=== PATIENT | female | born 1945 | race African-American/Black ===

== ENCOUNTER 2016-12-21 11:47 | Inpatient (IN) ==
[2016-12-21] MEDS ORDERED: HYDROmorphone 2 MG/1 ML VIAL IV STA (12:11)
[2016-12-21] MEDS ORDERED: ONDANSETRON 4 MG/2 ML VIAL IV STA ×2 (12:11→13:51)
[2016-12-21] MEDS ORDERED: PANTOPRAZOLE 40 MG VIAL IV STA (12:11)
--- NOTE | 2016-12-21 12:29 | XRay Report ---
XR chest 1V portable Indication: Abdominal pain. Chest one view: Heart size and mediastinal contour are normal. Lungs are hypoinflated, with senile interstitial scarring centrally. They are otherwise generally clear, except for minimal bibasilar atelectasis. Pleural spaces are clear. Bones are intact. Impression: Mild pulmonary hypoinflation with atelectasis. Senile lung changes centrally. PROCEDURE INTERPRETED AT [facility] DEPARTMENT OF RADIOLOGY Final Report Signed by: Bishop Bryant M.D.
--- NOTE | 2016-12-21 12:43 | EKG Report ---
Stationary ECG Study [facility] ER Test Date: 12/21/2016 12:42:02 PM Pat Name: MOSHE EDWARDS Department: Room: 111 Gender: F Pipe Fitter Helper: : 1945 Requested by: Christopher Seaman Order Number: [id number] Ema MD: PETER EISENBERG Intervals [place] Rate: 125 P: 95 NE: 104 QRS: 59 QRSD: 86 T: 13 QT: 396 QTc: 470 Interpretive Statements SINUS TACHYCARDIA WITH SHORT NE INTERVAL ABNORMAL RHYTHM ECG Electronically Signed On 12-22-16 12:30:41 [employer] by PETER EISENBERG [email or web address]
[2016-12-21 12:46] LABS: Basophils # 0.1 10*3/uL (0.0-0.2); Basophils % 0.2 % (0.0-0.8); Hematocrit 39.4 VOL% (35.7-47.0); Hemoglobin 13.6 GM/DL (12.0-16.0); Immature Granulocytes % 1.4 %; Lymphocytes % 3.6 % (21.3-54.2); Mean Corpuscular HGB Conc 34.5 GM/DL (32-36); Mean Corpuscular Hemoglobin 33 PG (27-34); Mean Corpuscular Volume 96.6 FL (87-102); Mean Platelet Volume 11.7 FL (9.6-12.0); Monocytes # 1.2 10*3/uL (0.11-0.8); Monocytes % 4.1 % (1.7-12.7); Neutrophils # 25.6 10*3/uL (1.4-7.4); Neutrophils % 90.7 % (38.7-73.9); Platelet Count 220 10*3/uL (130-400); Red Blood Count 4.08 10*6/uL (3.8-5.5); Red Cell Distribution Width 12.4 % (9.3-17.3); White Blood Count 28.2 10*3/uL (4.5-13.71)
[2016-12-21 12:59] LABS: Albumin 3.1 G/DL (3.4-5.0); Bilirubin,Total 0.7 MG/DL (0.2-1.0); Calcium 9.1 MG/DL (8.5-10.1); Lactic Acid 8.2 MMOL/L (0.4-2.0); Osmolality,Calculated 268.5 MOS/KG (273-304); Total Protein 7.4 G/DL (6.4-8.3)
[2016-12-21 13:03] LABS: Potassium 2.1 MMOL/L (3.5-5.1)
[2016-12-21 13:05] LABS: Band Neutrophils 7 % (0-10); Lymphocytes 1 % (20-55); Metamyelocytes 1 %; Segmented Neutrophils 89 % (50-85); Total Cells Counted 100
[2016-12-21 13:06] LABS: Hypochromasia 1+; Platelet Estimate Adequate
[2016-12-21] MEDS ORDERED: PANTOPRAZOLE 40 MG VIAL IV ONE (13:19)
[2016-12-21] MEDS ORDERED: ONDANSETRON 4 MG/2 ML VIAL ONE ×2 (13:19→16:26)
[2016-12-21] MEDS ORDERED: HYDROmorphone 2 MG/1 ML VIAL ONE (13:20)
[2016-12-21 13:49] LABS: Apearance,Urine Slightly Hazy (Clear); Bacteria,Urine Occasional /HPF (Few); Bilirubin,Urine Negative (Negative); Blood, Urine Small mg/dL (Negative); Glucose,Urine (UA) Negative (Negative); Hyaline Casts,Urine 1 /LPF (0-3); Ketones,Urine 5 mg/dL (Negative); Mucus,Urine Occasional /LPF (Occasional); Nitrite,Urine Negative (Negative); Protein,Urine Negative; RBC,Urine 6 /HPF (0-4); Squamous Epithelial Cell,Urine Occasional /HPF (0-10); Urine Color Yellow (Yellow); Urine Specific Gravity 1.014 (1.001-1.035); Urine Urobilinogen < 2.0 EU/DL (0.2-1.0); WBC,Urine 4 /HPF (0-6)
--- NOTE | 2016-12-21 15:13 | CT Report ---
CT abdomen pelvis w con Indication: Abdominal pain. CT ABDOMEN AND PELVIS WITH CONTRAST DLP: 411 mGy*cm Comparison: 12/16/12 Technique: Axial CT images of the abdomen and pelvis were obtained with IV contrast; Omnipaque 350, 100 cc. Oral contrast was not administered. Abdomen: Distal esophagus is thickened concentrically similar but worse than on the prior exam 4 years ago. Tiny right pleural effusion is present. Bibasilar atelectasis or scarring. Mild cardiomegaly. Mitral valve calcifications noted. Liver, gallbladder, spleen, pancreas, adrenal glands are within normal limits. Cortical scarring of both kidneys present. No obstructive uropathy. Fluid-filled small bowel is present centrally without dilatation. Stomach is modestly distended with fluid and air. By CT, colon appears unremarkable overall. No free fluid, free air or lymphadenopathy. Calcified atheromatous disease the aorta is present but mild. Pelvis: Urinary bladder is distended. Appendix is normal without inflammation. Rectosigmoid colon is within normal limits. Uterus is absent. Left FLORINDA, osteopenia and degenerative changes lumbar spine noted. Impression: 1. Fluid-filled central small bowel noted, without obstruction. Mild enteritis suspect. 2. Concentric thickening of the distal esophagus. Although present and 2013, it is more pronounced now. Is there history of connective tissue disorder or chronic reflux? EGD warranted. 3. Distention urinary bladder. 4. Negative appendix. Status post hysterectomy. Cortical scarring the kidneys. PROCEDURE INTERPRETED AT [facility] DEPARTMENT OF RADIOLOGY Final Report Signed by: Bishop Bryant M.D.
--- NOTE | 2016-12-21 15:43 | Emergency Department Note ---
Gary Beard Jamie, am scribing for, and in the presence of, Umesh Bennett MD 12:14. Donald Beard Doug C, MD, personally performed the services described in this documentation, ascribed by Enrrique Vega in my presence, and it is both accurate and complete 510 . Arrival - Arrival Chief Complaint: Abdominal / Flank Pain Stated Complaint: ABD Pain/Coffee ground emesis ED Nursing Triage Note: Onset of severe abd pain and dark emesis at 0300 this morning. +Hand cramps Mode of Arrival: Stretcher Limitations: No Limitations Source: Patient, RN Notes Reviewed Time Seen by Provider: 12/21/16 12:11 - History of Present Illness HPI Narrative: Patient 71 year old black female presents emergency room complaining of abdominal pain with nausea and vomiting that began at 3 AM. Patient had some dark emesis this morning but denies any prior history of peptic ulcer disease and denies any dyspepsia. She is not using any anti-inflammatory drugs and has never had any episode like this in the past. Patient states she is diffusely tender in her abdomen. She has not seen any blood in her stools and denies melena. She is not having any fever or chills. No one else at home has been ill. Onset (ago): hour(s) (9) Consistency: constant Severity: moderate Allergies/Adverse Reactions: Allergies Allergy/AdvReac Type Severity Reaction Status Date / Time meperidine [From Demerol] AdvReac Nausea Verified 07/28/16 21:08 Home Medications: Home Medications Medication Instructions Recorded Confirmed Type cloNIDine HCl [Clonidine HCl] 0.2 mg PO BID 07/29/16 12/21/16 History Cilostazol 100 mg PO BID 12/21/16 12/21/16 History Gabapentin Cap/Tab [Neurontin 100 mg PO BID 12/21/16 12/21/16 History Cap/Tab] HYDROcodone/ACETAMIN 7.5-325 2 tablet PO Q6H PRN 12/21/16 12/21/16 History [[place] 7.5-325] Metoprolol Tartrate 50 mg PO BID 12/21/16 12/21/16 History Potassium Chloride Cap/Tab [K Dur] 20 meq PO DAILY 12/21/16 12/21/16 History Review of System - Review of System 12 point system: reviewed and no additional remarkable complaints except as stated - Review of System Constitutional: Absent: chills, diaphoresis, fever, weakness Eyes: Absent: vision change Respiratory: Absent: cough Cardiovascular: Absent: chest pain Gastrointestinal: Present: abdominal pain, nausea, vomiting (Dark emesis). Absent: diarrhea, constipation Musculoskeletal: Absent: joint swelling Skin: Absent: rash, change in color Neurological: Absent: headache, weakness, numbness, confusion Hematological/Lymphatic: Absent: easy bleeding, easy bruising Medical,Surgical,& Family Hx - Medical History Cardio: History of: Hypertension Gastrointestinal: History of: GERD Reproductive: History of: Ectopic (two) - Surgical History HEENT Surgeries: Surgical HX of: Eye Surgery (cateract) Abdominal Surgeries: Surgical HX of: Cholecystectomy Reproductive Surgeries: Surgical HX of;: Hysterectomy - Family History Family History: Denies;: Family Anesthesia Reaction, Family Cancer, Family Diabetes, Family Heart Disease, Family Hypertension, Family Psychiatric Problems, Family Stroke - Social History Smoking Status: Unknown if ever smoked Frequency of Alcohol Use: Unknown Type of Drug Use: Unknown Exam Vital Signs: Vital Signs Temperature 97.5 F L 12/21/16 11:50 Pulse Rate 131 H 12/21/16 11:50 Respiratory Rate 24 12/21/16 11:50 Blood Pressure 138/92 12/21/16 11:50 O2 Sat by Pulse Oximetry 100 12/21/16 11:48 - General General appearance: alert, in no apparent distress - Head Head exam: Present: atraumatic, normocephalic, normal inspection - Eye Eye exam: Present: normal appearance, PERRL, EOMI - ENT ENT exam: Present: normal exam, mucous membranes moist, TM's normal bilaterally - Neck Neck exam: Present: normal inspection, full ROM - Chest Chest inspection: Present: normal inspection, symmetric chest wall rise - Respiratory Respiratory exam: Present: normal lung sounds bilaterally - Cardiovascular Cardiovascular exam: Present: regular rate, tachycardia, normal heart sounds - Abdominal Exam Abdominal exam: Present: soft, tenderness (Diffusely tender), normal bowel sounds. Absent: guarding, rebound - Extremities Exam Extremities exam: Present: normal inspection, full ROM - Neurological Exam Neurological exam: Present: alert, oriented X3, CN II-XII intact, reflexes normal. Absent: motor sensory deficit - Psychiatric Psychiatric exam: Present: normal affect, normal mood - Skin Skin exam: Present: warm, dry, intact, normal color Course Course Narrative: Patient's clinical presentation, laboratory and radiographic findings were discussed with Dr. Suresh De Jesus and Dr. Mckeon. Dr. Magana will admit the patient to his services and Dr. Suresh De Jesus will see in consultation Results - Labs CBC & BMP: 12/21/16 12:19 12/21/16 12:19 Lab Results: I have reviewed the patients labs Labs: Laboratory Tests 12/21/16 12/21/16 12/21/16 12:19 12:19 13:33 WBC 28.2 H Neut % (Auto) 90.7 H Lymph % (Auto) 3.6 L Neut # (Auto) 25.6 H Lymph # (Auto) 1.0 L [place] # (Auto) 1.2 H Segmented Neutrophils 89 H Lymphocytes 1 L Sodium 132 L Potassium 2.1 L* Chloride 77 L Carbon Dioxide 35 H Anion Gap 22.1 H BUN 25 H Creatinine 1.30 H Glucose 115 H Calculated Osmolality 268.5 L Lactic Acid 8.2 H ALT 12 L Albumin 3.1 L Globulin 4.3 H Albumin/Globulin Ratio 0.7 L Lipase 55.0 L Urine Urobilinogen < 2.0 H Urine Leukocytes Small H - Diagnostic Findings Procedure: Chest x-ray: report reviewed by me (Mild pulmonary hypoinflation with atelectasis. Senile lung changes centrally. ), CT Abdomen and Pelvis: report reviewed by me (Changes consistent with enteritis and thickening of the distal esophagus) Disposition Clinical Impression: Enteritis, Upper GI hemorrhage Case discussed with: patient, patient's family Disposition: Still a Patient Condition: Guarded Time of Disposition: 15:43
[2016-12-21] MEDS ORDERED: LACTATED RINGERS 2,000 ML IV ONE (16:07)
[2016-12-21] MEDS ORDERED: PIPERACILLIN/TAZOBACTAM 3,375 MG in SODIUM CHLORIDE 0.9% 100 ML IV STA (16:07)
--- NOTE | 2016-12-21 16:07 | General Surgery Consult Note ---
Assessment and Plan (1) Abdominal pain Status: Acute Assessment and plan: This patient had abdominal pain with nausea and vomiting and coffee grounds emesis and she does have some thickening of her distal esophagus and some small bowel fluid-filled loops with no evidence of obstruction. Her vasculature on her CT scan appears relatively intact but there is some calcification at the ostia of the celiac artery and the SMA. However, there does not appear to be any arterial thrombosis or embolism and there doesn't appear to be any venous occlusive disease either. Her anatomy appears intact as far as her C-loop of her duodenum and she does not appear to have any evidence of malrotation or midgut volvulus. She does have on her axial CT scan an area just distal to her calcification which looks like it could be a small dissection flap that this is not seen on the coronal images so it could just be artifact as well in either way it was not flow-limiting and there is good filling of the artery distally. The delayed images also don't show any problems with this. I do not see any problems that would require surgical intervention although her lab work is very concerning to me. I recommend admission with IV fluid resuscitation and serial lactates to make sure she is resuscitating appropriately. She should have a GI consultation to evaluate for coffee grounds emesis and we should trend her hemoglobin and monitor her closely in the ICU. Her electrolytes will also have to be aggressively addressed and repleted during her resuscitation. I also would recommend IV antibiotics to cover GI giacomo. Current Visit: Yes History of Present Illness Chief complaint: abdominal pain with coffee grounds emesis History of present illness: Ms. Asehr is a 71 year old female with a history of hypertension who presents to the hospital with acute onset of periumbilical abdominal pain that woke her from sleep at 3 a.m. She had several episodes of what she describes as coffee grounds emesis afterwards and presented to the ER for evaluation. On initial presentation in the ER she was tachycardic with a heart rate near 150 but her blood pressure was stable and normal. She was a little bit tachypneic as well. She was treated with some IV fluids and pain medication and she had a good response to this. She was evaluated with lab work after her resuscitation which demonstrated a white blood cell count 28,000. She had a potassium of 2.1 and had hypochloremic hypokalemic metabolic acidosis with a lactic acid of 8.2. Her urinalysis revealed possible urine culture and the culture was sent off. She was evaluated with a CT scan which showed some fluid-filled loops of small bowel but no transition point or evidence of obstruction. There was no evidence of vascular compromise to the intestines but there was fairly significant calcification at the ostia of the celiac and the SMA. There was no venous thrombosis seen. The patient did not have evidence of a bowel obstruction. By the time I saw the patient, her pain was much better and she actually had a nontender abdomen and her heart rate was in the low 100s. She is almost asymptomatic at the time of my visit with her and is resting comfortably in bed. Home Medications Medication Instructions Recorded Confirmed Type cloNIDine HCl [Clonidine HCl] 0.2 mg PO BID 07/29/16 12/21/16 History Cilostazol 100 mg PO BID 12/21/16 12/21/16 History Gabapentin Cap/Tab [Neurontin 100 mg PO BID 12/21/16 12/21/16 History Cap/Tab] HYDROcodone/ACETAMIN 7.5-325 2 tablet PO Q6H PRN 12/21/16 12/21/16 History [[place] 7.5-325] Metoprolol Tartrate 50 mg PO BID 12/21/16 12/21/16 History Potassium Chloride Cap/Tab [K Dur] 20 meq PO DAILY 12/21/16 12/21/16 History Allergies Allergy/AdvReac Type Severity Reaction Status Date / Time meperidine [From Demerol] AdvReac Nausea Verified 07/28/16 21:08 Medical,Surgical,& Family Hx - Medical History Cardio: History of: Hypertension Gastrointestinal: History of: GERD Reproductive: History of: Ectopic (two) - Surgical History HEENT Surgeries: Surgical HX of: Eye Surgery (cateract) Abdominal Surgeries: Surgical HX of: Cholecystectomy Reproductive Surgeries: Surgical HX of;: Hysterectomy - Family History Family History: Denies;: Family Anesthesia Reaction, Family Cancer, Family Diabetes, Family Heart Disease, Family Hypertension, Family Psychiatric Problems, Family Stroke - Social History Smoking Status: Unknown if ever smoked Frequency of Alcohol Use: Unknown Type of Drug Use: Unknown - Constitutional Constitutional: Present: as per HPI - EENT Nose, mouth and throat: Present: as per HPI - Cardiovascular Cardiovascular: Present: as per HPI - Respiratory Respiratory: Present: as per HPI - Gastrointestinal Gastrointestinal: Present: as per HPI - Genitourinary Genitourinary: Present: as per HPI - Musculoskeletal Musculoskeletal: Present: as per HPI - Neurological Neurological: Present: as per HPI - Endocrine Endocrine: Present: as per HPI Hematologic/Lymphatic: Present: as per HPI Exam - Constitutional Vitals: Period Temp Pulse Resp BP Sys/Joya Pulse Ox Last 24 Hr 97.5 F-97.5 F 131-147 24-28 138-138/92-92 100 General appearance: normal weight, no acute distress - Head Head exam: Present: normal inspection, normocephalic - Eye Eye exam: Present: EOMI Pupils: Present: JIL - ENT ENT exam: Present: normal exam Mouth exam: Present: normal external inspection, normal voice - Neck Neck exam: Present: normal inspection, trachea midline - Respiratory Respiratory exam: Present: clear to auscultation bilaterally. Absent: accessory muscle use, chest wall tenderness - Cardiovascular Cardiovascular exam: Present: tachycardia. Absent: irregular rhythm, systolic murmur - GI/Abdominal GI/Abdominal exam: Present: hypoactive bowel sounds, soft. Absent: ascites, distended, firm, guarding, hernia, tenderness, rebound - Extremities Exam Extremities exam: Present: normal inspection, normal capillary refill - Back Exam Back exam: Present: normal inspection - Neurological Exam Neurological exam: Present: alert, oriented X3 Speech: Present: normal - Skin Skin exam: Present: normal color, warm Results - Labs CBC & BMP: 12/21/16 12:19 12/21/16 12:19 - Diagnostic Findings Procedure: CT Abdomen and Pelvis: image reviewed by me, report reviewed by me
[2016-12-21 16:24] LABS: Troponin I Only 0.053 NG/ML (0.00-0.045)
[2016-12-21] MEDS ORDERED: PIPERACILLIN/TAZOBACTAM 3,375 MG VIAL IV ONE (16:26)
[2016-12-21] MEDS ORDERED: SODIUM CHLOR 0.9% KCL 40 MEQ 40 MEQ/1,000 ML BAG IV ONE (16:26)
--- NOTE | 2016-12-21 16:51 | Hospitalist History & Physical ---
Assessment and Plan (1) Intractable nausea and vomiting Status: Acute Assessment and plan: with epigastric pain: CT showed no evidence of obstruction. Plan IVF IV antibiotics Blood cultures pain meds and antiemetics GI consult amylase, lipase levels H.pylori PPIs lactic level in am Current Visit: Yes (2) Coffee ground emesis Status: Acute Assessment and plan: continue with IVF, PPIs, GI consult Current Visit: Yes (3) Hypertension Status: Chronic Assessment and plan: will control Current Visit: No Qualifiers: Hypertension type: essential hypertension Qualified Code(s): I10 - Essential (primary) hypertension (4) Hypokalemia Status: Acute Assessment and plan: will replete and repeat levels in am, get Mg level Current Visit: Yes (5) Elevated troponin Status: Acute Assessment and plan: this could be due to sepsis to r/o ACS -repeat levels -consider Echo in am Current Visit: Yes (6) Sepsis Status: Acute Assessment and plan: possible sepsis with the tachycardia,elevated WBC,lactic acid -panculture, continue with IV Zosyn Current Visit: Yes History of Present Illness Chief complaint: nausea and vomiting History of present illness: Ms. Asher is a 71 year old female with a history of HTN, GERD who was well until around 3pm today when she developed some nausea, vomiting, coffee grounds emesis. Symptoms progressively worsened, she was unable to keep anything down and was brought to the ER for evaluation. She states an associated epigastric pain but denies fever, chills or rigor. She also denies constipation or diarrhoea. She denies ingestion of any seafood and has no previous history of ulcer. Upon arrival to the ER,she was tachycardic with a heart rate near 150 but her blood pressure was stable,white blood cell count was 28,000. She had a potassium of 2.1 and had hypochloremic hypokalemic metabolic acidosis with a lactic acid of 8.2.CT scan which showed some fluid-filled loops of small bowel but no transition point or evidence of obstruction. There was no evidence of vascular compromise to the intestines but there was fairly significant calcification at the ostia of the celiac and the SMA. There was no venous thrombosis seen. The patient did not have evidence of a bowel obstruction. She was started on IVF, pain meds,IV Zosyn, surgery was consulted and they did not see any problems that would require surgical intervention although her lab work was very concerning, they recommended fluid resuscitation and GI consult. She denies any melena stools,or bleeding from any orifices. Home Medications Medication Instructions Recorded Confirmed Type cloNIDine HCl [Clonidine HCl] 0.2 mg PO BID 07/29/16 12/21/16 History Cilostazol 100 mg PO BID 12/21/16 12/21/16 History Gabapentin Cap/Tab [Neurontin 100 mg PO BID 12/21/16 12/21/16 History Cap/Tab] HYDROcodone/ACETAMIN 7.5-325 2 tablet PO Q6H PRN 12/21/16 12/21/16 History [[place] 7.5-325] Metoprolol Tartrate 50 mg PO BID 12/21/16 12/21/16 History Potassium Chloride Cap/Tab [K Dur] 20 meq PO DAILY 12/21/16 12/21/16 History Allergies Allergy/AdvReac Type Severity Reaction Status Date / Time meperidine [From Demerol] AdvReac Nausea Verified 07/28/16 21:08 Medical,Surgical,& Family Hx - Medical History Cardio: History of: Hypertension Gastrointestinal: History of: GERD Reproductive: History of: Ectopic (two) - Surgical History HEENT Surgeries: Surgical HX of: Eye Surgery (cateract) Abdominal Surgeries: Surgical HX of: Cholecystectomy Reproductive Surgeries: Surgical HX of;: Hysterectomy - Family History Family History: Denies;: Family Anesthesia Reaction, Family Cancer, Family Diabetes, Family Heart Disease, Family Hypertension, Family Psychiatric Problems, Family Stroke - Social History Smoking Status: Unknown if ever smoked Frequency of Alcohol Use: Unknown Type of Drug Use: Unknown 12 point system: reviewed and no additional remarkable complaints except as stated Exam - Constitutional Vitals: Period Temp Pulse Resp BP Sys/Joya Pulse Ox Last 24 Hr 97.5 F-97.5 F 131-147 24-28 138-138/92-92 100 General appearance: no acute distress - Head Head exam: Present: normal inspection - Neck Neck exam: Present: normal inspection - Respiratory Respiratory exam: Present: clear to auscultation bilaterally - Cardiovascular Cardiovascular exam: Present: regular rate and rhythm - GI/Abdominal GI/Abdominal exam: Present: normal bowel sounds, tenderness (mild epigastric tenderness, no guarding) - Extremities Exam Extremities exam: Present: normal inspection - Neurological Exam Neurological exam: Present: alert, oriented X3 Results - Labs CBC & BMP: 01/29/17 12:19 12/21/16 12:19 Lab Results: I have reviewed the past 24 hour labs
[2016-12-21] MEDS: SODIUM CHLOR 0.9% KCL 40 MEQ 40 MEQ/1,000 ML BAG IV SCH (16:57)
[2016-12-21] MEDS ORDERED: MAGNESIUM SULF RIDER 2 GM in PREMIX 1 EACH IV ONE (18:13)
[2016-12-21] MEDS ORDERED: SODIUM CHLORIDE 0.45% 1,000 ML IV SCH (18:13)
[2016-12-21] MEDS: MORPHINE 2 MG/1 ML SYRINGE IV PRN (18:27)
[2016-12-21] MEDS: LABETALOL 20 MG/4 ML SYRINGE IV PRN (19:24)
[2016-12-21 19:31] LABS: Lactic Acid 2.6 MMOL/L (0.4-2.0)
[2016-12-21 19:34] LABS: Amylase 48 U/L (25-115)
[2016-12-21 19:40] LABS: Troponin I Only 0.101 NG/ML (0.00-0.045)
[2016-12-21 19:45] LABS: Risk Ratio 2.96; Thyroid Stimulating Hormone 0.209 uIU/ml (0.358-3.74); VLDL CHOLESTEROL 16.8 MG/DL
[2016-12-21] MEDS: POTASSIUM CHLORIDE RIDER 10 MEQ in PREMIX 1 EACH IV PRN ×3 (19:46→22:53)
[2016-12-21] MEDS: ONDANSETRON 4 MG/2 ML VIAL IV PRN (19:56)
[2016-12-21 19:59] LABS: Basophils % 0.1 % (0.0-0.8); Hematocrit 36.2 VOL% (35.7-47.0); Immature Granulocytes % 0.6 %; Immature Granulocytes Absolute 0.15 #; Lymphocytes # 1.2 10*3/uL (1.4-4.0); Mean Corpuscular HGB Conc 33.1 GM/DL (32-36); Mean Corpuscular Hemoglobin 33 PG (27-34); Mean Corpuscular Volume 100.6 FL (87-102); Mean Platelet Volume 11.7 FL (9.6-12.0); Monocytes # 1.4 10*3/uL (0.11-0.8); Monocytes % 6.1 % (1.7-12.7); Neutrophils # 20.6 10*3/uL (1.4-7.4); Neutrophils % 88.2 % (38.7-73.9); Platelet Count 156 10*3/uL (130-400); Red Cell Distribution Width 12.9 % (9.3-17.3); White Blood Count 23.4 10*3/uL (4.5-13.71)
[2016-12-21] MEDS: CILOSTAZOL 100 MG TABLET PO SCH (20:13)
[2016-12-21 20:17] LABS: Magnesium 1.6 MG/DL (1.8-2.4); Osmolality,Calculated 267.4 MOS/KG (273-304)
[2016-12-21 20:21] LABS: Potassium 2.5 MMOL/L (3.5-5.1)
[2016-12-21 20:23] LABS: Band Neutrophils 1 % (0-10); Lymphocytes 5 % (20-55); Segmented Neutrophils 88 % (50-85); Total Cells Counted 100
[2016-12-21 20:24] LABS: Platelet Estimate Normal
[2016-12-21] MEDS ORDERED: PROMETHAZINE 25 MG/1 ML VIAL IM PRN (21:54)
[2016-12-21] MEDS: METOPROLOL TARTRATE 50 MG TABLET PO SCH (22:19)
[2016-12-21] MEDS: GABAPENTIN 100 MG CAPSULE PO SCH (22:19)
[2016-12-22] MEDS: PIPERACILLIN/TAZOBACTAM 3,375 MG in SODIUM CHLORIDE 0.9% 100 ML IV SCH ×3 (00:56→15:47)
[2016-12-22] MEDS: SODIUM CHLOR 0.9% KCL 40 MEQ 40 MEQ/1,000 ML BAG IV SCH ×3 (00:56→15:47)
[2016-12-22] MEDS: LABETALOL 20 MG/4 ML SYRINGE IV PRN (01:07)
[2016-12-22] MEDS: POTASSIUM CHLORIDE RIDER 10 MEQ in PREMIX 1 EACH IV PRN ×5 (01:08→14:19)
[2016-12-22] MEDS: METOPROLOL TARTRATE 50 MG TABLET PO SCH ×2 (08:22→20:54)
[2016-12-22] MEDS: GABAPENTIN 100 MG CAPSULE PO SCH ×2 (08:22→20:54)
[2016-12-22] MEDS: PANTOPRAZOLE 40 MG VIAL IV SCH (08:22)
[2016-12-22] MEDS: CILOSTAZOL 100 MG TABLET PO SCH (08:22)
[2016-12-22] MEDS: POTASSIUM CHLORIDE 20 MEQ TABLET PO SCH (08:22)
[2016-12-22 08:40] LABS: Basophils % 0.2 % (0.0-0.8); Hematocrit 32.4 VOL% (35.7-47.0); Hemoglobin 10.8 GM/DL (12.0-16.0); Immature Granulocytes % 0.6 %; Immature Granulocytes Absolute 0.15 #; Lymphocytes % 8.5 % (21.3-54.2); Mean Corpuscular HGB Conc 33.3 GM/DL (32-36); Mean Corpuscular Hemoglobin 33 PG (27-34); Mean Corpuscular Volume 98.5 FL (87-102); Mean Platelet Volume 11.6 FL (9.6-12.0); Monocytes # 1.4 10*3/uL (0.11-0.8); Monocytes % 5.7 % (1.7-12.7); Neutrophils # 20.2 10*3/uL (1.4-7.4); Platelet Count 165 10*3/uL (130-400); Red Blood Count 3.29 10*6/uL (3.8-5.5); White Blood Count 23.8 10*3/uL (4.5-13.71)
[2016-12-22 09:00] LABS: Band Neutrophils 1 % (0-10); Hypochromasia 1+; Lymphocytes 8 % (20-55); Platelet Estimate Normal; Segmented Neutrophils 87 % (50-85); Total Cells Counted 100
--- NOTE | 2016-12-22 09:06 | Hospitalist Progress Note ---
Assessment and Plan (1) Intractable nausea and vomiting Status: Acute Assessment and plan: with epigastric pain: improved . CT showed no evidence of obstruction. Plan Continue IVF, IV antibiotics, PPIs Follow Blood cultures Continue pain meds and antiemetics Await GI consult amylase, lipase levels-unremarkable follow H.pylori, lactic level Current Visit: Yes (2) Coffee ground emesis Status: Acute Assessment and plan: continue with IVF, PPIs, Awaiting GI consult Current Visit: Yes (3) Hypertension Status: Chronic Assessment and plan: stable Current Visit: No Qualifiers: Qualified Code(s): I10 - Essential (primary) hypertension (4) Hypokalemia Status: Acute Assessment and plan: will continue to replete, follow levels in am, get Mg level Current Visit: Yes (5) Elevated troponin Status: Acute Assessment and plan: this could be due to sepsis to r/o ACS -repeat levels -follow Echo, await cardiology's consult Current Visit: Yes (6) Sepsis Status: Acute Assessment and plan: possible sepsis with the tachycardia,elevated WBC,lactic acid -follow cultures, continue with IV Zosyn Current Visit: Yes Hospitalist: Subjective Interval history: Patient seen this am, no episode of coffee ground emesis reported since admission. Awaiting GI consult, no new complaints. Exam - Constitutional Vitals: Period Temp Pulse Resp BP Sys/Joya Pulse Ox Last 24 Hr 97.6 F-98.8 F 72-95 14-23 126-182/63-98 92-100 General appearance: no acute distress - Respiratory Respiratory exam: Present: clear to auscultation bilaterally - Cardiovascular Cardiovascular exam: Present: regular rate and rhythm - GI/Abdominal GI/Abdominal exam: Present: normal bowel sounds - Extremities Exam Extremities exam: Present: normal inspection Results - Labs CBC & BMP: 12/22/16 08:33 12/21/16 19:54 Lab Results: I have reviewed the past 24 hour labs Quality Measures - VTE Contraindication to Pharmacological VTE Prophylaxis: Active Bleeding
[2016-12-22 09:15] LABS: Alanine Aminotransferase < 9 U/L (13-56); Albumin 2.4 G/DL (3.4-5.0); Alkaline Phosphatase 54 U/L (45-117); Aspartate Amino Transferase 30 U/L (0-37); Blood Urea Nitrogen 9 MG/DL (7-18); Glucose 92 MG/DL (74-106); Potassium 3.8 MMOL/L (3.5-5.1); Sodium 136 MMOL/L (136-145); Total Protein 5.6 G/DL (6.4-8.3)
[2016-12-22 09:26] LABS: Troponin I Only 0.072 NG/ML (0.00-0.045)
--- NOTE | 2016-12-22 10:36 | General Surgery Progress Note ---
Assessment and Plan (1) Abdominal pain Status: Acute Assessment and plan: The patient has responded to IV fluid resuscitation and her lactic acid is normalized. She has no abdominal tenderness on exam today. I'll sign off at this time. Her exam and her history doesn't indicate the need for any further workup or surgical intervention but please call back if there are any further questions. Current Visit: Yes Subjective Patient reports: Present: no new complaints, feels better, still having pain, pain is less, afebrile. Absent: nausea, vomiting Exam - Constitutional Vitals: Period Temp Pulse Resp BP Sys/Joya Pulse Ox Last 24 Hr 97.6 F-98.8 F 72-95 14-23 126-182/63-98 92-100 General appearance: normal weight, no acute distress - Head Head exam: Present: normal inspection, normocephalic - Eye Eye exam: Present: EOMI Pupils: Present: JIL - ENT ENT exam: Present: normal exam Mouth exam: Present: normal external inspection, normal voice - Neck Neck exam: Present: normal inspection, trachea midline - Respiratory Respiratory exam: Present: clear to auscultation bilaterally. Absent: accessory muscle use, chest wall tenderness - Cardiovascular Cardiovascular exam: Present: RRR. Absent: systolic murmur, tachycardia - GI/Abdominal GI/Abdominal exam: Present: hypoactive bowel sounds, soft. Absent: tenderness, rebound - Extremities Exam Extremities exam: Present: normal inspection, normal capillary refill - Back Exam Back exam: Present: normal inspection - Neurological Exam Neurological exam: Present: alert, oriented X3 Speech: Present: normal - Skin Skin exam: Present: normal color, warm Results - Labs CBC & BMP: 12/22/16 08:33 12/22/16 08:33 Quality Measures - VTE Contraindication to Pharmacological VTE Prophylaxis: Active Bleeding
[2016-12-22] MEDS: MORPHINE 2 MG/1 ML SYRINGE IV PRN ×2 (12:21→17:56)
[2016-12-22] MEDS: ONDANSETRON 4 MG/2 ML VIAL IV PRN ×2 (12:24→17:56)
--- NOTE | 2016-12-22 12:25 | Gastrointestinal Consult Note ---
Assessment and Plan (1) Coffee ground emesis Status: Acute Assessment and plan: 12/22-Two episodes of dark emesis with vague abd pain two days ago. No prior hx of PUD, NSAIDs. No prior endoscopy. Hgb stable at 10. CT with findings of thickening of distal esophagus. recommendation for EGD. Plan and addendum to follow by Dr Crockett. Current Visit: Yes History of Present Illness Chief complaint: Coffee ground emesis History of present illness: Ms. Asher is a 71 year old female with onset of abdominal pain and coffee ground emesis. Pt is a fair historian therefore information also obtained from chart review. Pt presented on yesterday to the ER with onset of vague generalized abdominal pain and reports of coffee ground emesis. She states she was in her usual state of health until yesterday morning when she awoke from her sleep with onset of nausea. Shortly after this she began vomiting what she describes as dark, coffee ground material. She states that she then came to the ER shortly after this for evaluation. She states that she has not had this pain in the past and has no history of GI bleed or PUD. Denies any recent weight loss , fever or chills. Denies any recent illnesses. Denies any changes in bowel habits, melena, or hematochezia. She denies any NSAID use. she was found on admission to be tachycardic, hypokalemic and with metabolic acidosis however these normalized following fluid resuscitation. Her abdominal pain reportedly resolved shortly after admission as well and has had no further emesis. She had a CT of abdomen with contrast which showed a fluid filled small bowel w/o obstruction and mild enteritis, thickening of the distal esophagus. She denies having any endoscopy in the past. Hemoglobin is stable at 10.8, WBC 23. Cardiac enzymes noted to be elevated on admission however trending down at present. BUN/ Cr ration 15. Noted to be on Pletal Home Medications Medication Instructions Recorded Confirmed Type cloNIDine HCl [Clonidine HCl] 0.2 mg PO BID 07/29/16 12/21/16 History Cilostazol 100 mg PO BID 12/21/16 12/21/16 History Gabapentin Cap/Tab [Neurontin 100 mg PO BID 12/21/16 12/21/16 History Cap/Tab] HYDROcodone/ACETAMIN 7.5-325 2 tablet PO Q6H PRN 12/21/16 12/21/16 History [[place] 7.5-325] Metoprolol Tartrate 50 mg PO BID 12/21/16 12/21/16 History Potassium Chloride Cap/Tab [K Dur] 20 meq PO DAILY 12/21/16 12/21/16 History Allergies Allergy/AdvReac Type Severity Reaction Status Date / Time meperidine [From Demerol] AdvReac Nausea Verified 07/28/16 21:08 Medical,Surgical,& Family Hx - Medical History Cardio: History of: Hypertension No history of: Aneurysm, Cardiac Dysrhythmia, Cerebrovascular Disease, Congenital Heart Disease, CHF, CAD, [place], Pacemaker, PVD, Valvular Heart Disease, Cardiovascular Problems HEENT: History of: Eye Problem (Fluid reduction/ cataract surgery) Endocrine: No history of: Dyslipidemia Respiratory: No history of: Asthma, Bronchitis, COPD, Intubation, Obstructive Sleep Apnea , Pulmonary Embolism, Pulmonary Hypertension, Pneumonia, Lung Cancer, Respiratory Problems Renal: No history of: Renal (Kidney) Cancer, Dialysis, Renal Failure, Renal Problems Genitourinary: History of: Recurring Urinary Tract Infections No history of: Bladder Problem, Kidney Stones, Genitourinary Cancer, Problems Gastrointestinal: History of: GERD No history of: Bowel Obstruction, Clostridium Difficile, Crohn's Disease, Diverticulitis/ Diverticulosis, Esophageal Varices, Gastrointestinal Bleed, Hemorrhoids, Hematochezia, Hepatitis, Liver Problems, Pancreatitis, Polyps, Ulcerative Colitis, Gastrointestinal Cancer, GI Problems Reproductive: History of: Ectopic (two) - Surgical History Cardiac Surgeries: Patient Denies: Femoral-Popliteal Bypass Graft, Cardiac Catheterization, Cardiac Surgery, Carotid Endarterectomy, Internal Defibrillator, Vascular Access Devices Thoracic Surgeries: Patient denies;: Kidney (Renal Surgery), Lithotripsy, Nephrectomy, Lobectomy Neurologic Surgeries: Patient denies: Neurologic Surgery HEENT Surgeries: Surgical HX of: Eye Surgery (cateract) Patient denies: Carotid Endarterectomy Abdominal Surgeries: Patient denies: Abdominal Surgery, Appendectomy, Cholecystectomy, Colonoscopy , Gastric Bypass Surgery, EGD, Hernia Repair, Splenectomy Reproductive Surgeries: Surgical HX of;: Hysterectomy Patient denies;: Cystoscopy, Genitourinary Surgery - Family History Family History: Denies;: Family Anesthesia Reaction, Family Cancer, Family Diabetes, Family Heart Disease, Family Hypertension, Family Psychiatric Problems, Family Stroke - Social History Smoking Status: Unknown if ever smoked Frequency of Alcohol Use: None Type of Drug Use: Unknown 12 point system: reviewed and no additional remarkable complaints except as stated - Constitutional Constitutional: Present: as per HPI - EENT Eyes: Present: as per HPI Ears: Present: as per HPI Nose, mouth and throat: Present: as per HPI - Cardiovascular Cardiovascular: Present: as per HPI - Respiratory Respiratory: Present: as per HPI - Gastrointestinal Gastrointestinal: Present: as per HPI, coffee ground emesis, nausea, vomiting - Genitourinary Genitourinary: Present: as per HPI - Musculoskeletal Musculoskeletal: Present: as per HPI - Neurological Neurological: Present: as per HPI - Psychiatric Psychiatric: Present: as per HPI - Endocrine Endocrine: Present: as per HPI - Hematologic/Lymphatic Hematologic/Lymphatic: Present: as per HPI Exam - Constitutional Vitals: Period Temp Pulse Resp BP Sys/Joya Pulse Ox Last 24 Hr 97.6 F-98.8 F 72-95 14-23 126-182/63-98 92-100 General appearance: normal weight, no acute distress - Head Head exam: Present: normal inspection, normocephalic - Eye Eye exam: Present: other (lids and conjunctiva unremarkable). Absent: scleral icterus - ENT ENT exam: Present: normal exam, normal oropharynx - Neck Neck exam: Present: normal inspection - Respiratory Respiratory exam: Present: clear to auscultation bilaterally. Absent: rales, rhonchi, wheezes - Cardiovascular Cardiovascular exam: Present: regular rate and rhythm. Absent: diastolic murmur , JVD, systolic murmur - GI/Abdominal GI/Abdominal exam: Present: normal bowel sounds, soft. Absent: ascites, distended, mass, organomegaly, tenderness - Extremities Exam Extremities exam: Present: normal inspection, full ROM - Back Exam Back exam: Present: normal inspection - Neurological Exam Neurological exam: Present: alert, oriented X3 - Psychiatric Psychiatric exam: Present: normal affect, normal mood - Skin Skin exam: Present: normal color, warm, dry Results - Labs CBC & BMP: 12/22/16 08:33 12/22/16 08:33 Lab Results: I have reviewed the past 24 hour labs - Diagnostic Findings Procedure: CT Abdomen and Pelvis: report reviewed by me Quality Measures - VTE Contraindication to Pharmacological VTE Prophylaxis: Active Bleeding
[2016-12-22] MEDS ORDERED: MAGNESIUM SULF RIDER 2 GM in PREMIX 1 EACH IV PRN (14:15)
[2016-12-22] MEDS ORDERED: MAGNESIUM SULF RIDER 4 GM in PREMIX 1 EACH IV PRN (14:15)
--- NOTE | 2016-12-22 14:42 | Cardiology Consult Note ---
Edmond Beard Rachel RN, am scribing for, and in the presence of, Lb Fox MD 14:41. Assessment and Plan (1) Elevated troponin Status: Acute Current Visit: Yes (2) Hypomagnesemia Status: Acute Current Visit: Yes (3) Abdominal pain Status: Acute Current Visit: Yes (4) Coffee ground emesis Status: Acute Current Visit: Yes (5) Hypokalemia Status: Acute Current Visit: Yes (6) Intractable nausea and vomiting Status: Acute Current Visit: Yes (7) Sepsis Status: Acute Current Visit: Yes (8) Hypertension Status: Chronic Current Visit: No Qualifiers: Hypertension type: essential hypertension Qualified Code(s): I10 - Essential (primary) hypertension (9) Low TSH level Status: Acute Current Visit: Yes History of Present Illness - Data of Consult Patient: new to practice Consult date: 12/22/16 Requesting Physician: Ligia Torres Primary care physician: Salty Whitaker - Consult Narrative Reason for consult: Elevated Troponin History of present illness: Ms. Asher is a 71 year old female patient who is not routinely followed by local cardiology. She does not have known coronary artery disease. She has risk factors significant for age, former smoker (quit 30 years ago), and hypertension. She also has a past history of GERD. She has no significant surgical history and denies family history of heart disease. Patient was in her usual state of health until yesterday when she developed nausea and vomiting. She reports vomiting coffee ground emesis at home, this continued to worsen and she was then brought to [facility] for further evaluation. In the ER she was found to be tachycardic with a heart rate around 150. She was treated with IV fluids and pain medication. Her troponin was 0.53 yesterday, Cardiology was then asked to see patient for further cardiac workup. Today her troponin is 0.1. However, patient denies ever experiencing chest pain , shortness of breath, diaphoresis, arm/shoulder pain, dyspnea on exertion, activity intolerance, heart palpitations, or syncope. Today patient continues to deny chest pain and associated symptoms. She also denies abdominal pain and nausea. She states that she has not had any more vomiting since hospital admission. She is noted to be in sinus rhythm with heart rates in the 70's, without any overt arrhythmias or ectopy. Upon admission she was noted to have a left shift with a WBC of 28 noted and a lactic acid of 8.2, this is consistent with sepsis. Patient is being treated with antibiotics. Blood cultures pending. Urine culture no growth after [address] abdomen reveals no evidence of obstruction, this is being evaluated by surgery. Gi has also been consulted today to evaluate coffee ground emesis. Labs - Troponin (0.05 & 0.1), Total CK 334, Magnesium - 1.6, Creatinine 0.6, TSH - 0.209, free T4 ordered, lactic acid- 1.3, WBC - 23.8, Potassium 2.5, this is currently being replaced. Her H&H is stable. EKG- Borderline EKG, nonspecific ST wave changes. Chest xray - pulmonary hypoinflation with atelectasis noted. Echo is pending. Impression/plan: 1. Elevated troponin- Elevated troponin noted (0.05, 0.10, 0.072). Patient is currently chest pain free and denies ever experiencing chest pain or associated symptoms. This could possibly be secondary to sepsis. Echo has been ordered to help rule out possible ACS. 2. Sepsis- Patient is on appropriate antibiotics, Management per hospitalist. Blood cultures reveal no growth after 24 hours. Urine culture- no growth after 24 hours. 3. Abdominal pain- CT abdomen reveals no evidence of obstruction. Management per surgery. 4. Coffee ground emesis- H&H is stable today, GI has been consulted to further evaluate this. 5. Low TSH level - Free T4 ordered. 6. Hypokalemia - Potassium has been added to IVF's. Continue current plan of care. 7. Hypomagnesemia - Replacement protocol ordered. 8. Hypertension- This is better controlled this morning at 126/76, continue current plan of care. Cardiology addendum Patient and chart reviewed and discussed with nurse Ely No cardiac history. No history of angina or heart failure Trivial troponin elevation not likely be significant. Severe hypokalemia being corrected Echo today to assess EF and wall motion Monitor Cultures pending Broad-spectrum antibiotics CC: Ligia Torres MD - Home Medications and Allergies Home Medications: Home Medications Medication Instructions Recorded Confirmed Type cloNIDine HCl [Clonidine HCl] 0.2 mg PO BID 07/29/16 12/21/16 History Cilostazol 100 mg PO BID 12/21/16 12/21/16 History Gabapentin Cap/Tab [Neurontin 100 mg PO BID 12/21/16 12/21/16 History Cap/Tab] HYDROcodone/ACETAMIN 7.5-325 2 tablet PO Q6H PRN 12/21/16 12/21/16 History [[place] 7.5-325] Metoprolol Tartrate 50 mg PO BID 12/21/16 12/21/16 History Potassium Chloride Cap/Tab [K Dur] 20 meq PO DAILY 12/21/16 12/21/16 History Allergies/Adverse Reactions: Allergies Allergy/AdvReac Type Severity Reaction Status Date / Time meperidine [From Demerol] AdvReac Nausea Verified 07/28/16 21:08 - Constitutional Constitutional: Present: chills, fatigue, fever(s). Absent: excessive sweating , frequent falls, headache(s) - Cardiovascular Cardiovascular: Absent: chest pain at rest, chest pain with activity, claudication, diaphoresis, dyspnea, dyspnea on exertion, edema, radiating jaw, neck or arm pain, lightheadedness, orthopnea, palpitations, PND - Respiratory Respiratory: Absent: cough, dyspnea, hemoptysis, dyspnea on exertion, wheezing, snoring, pain on inspiration, change in phlegm color - Gastrointestinal Gastrointestinal: Present: abdominal pain, coffee ground emesis, heartburn, nausea, vomiting. Absent: constipation, diarrhea, hematochezia, loose stools, melena - Neurological Neurological: Absent: dizziness, frequent falls, headache(s), syncope - Endocrine Endocrine: Absent: fatigue, polydipsia, polyphagia, polyuria Medical,Surgical,& Family Hx - Medical History Cardio: History of: Hypertension No history of: Aneurysm, Cardiac Dysrhythmia, Cerebrovascular Disease, Congenital Heart Disease, CHF, CAD, [place], Pacemaker, PVD, Valvular Heart Disease, Cardiovascular Problems HEENT: History of: Eye Problem (Fluid reduction/ cataract surgery) Endocrine: No history of: Dyslipidemia Respiratory: No history of: Asthma, Bronchitis, COPD, Intubation, Obstructive Sleep Apnea , Pulmonary Embolism, Pulmonary Hypertension, Pneumonia, Lung Cancer, Respiratory Problems Renal: No history of: Renal (Kidney) Cancer, Dialysis, Renal Failure, Renal Problems Genitourinary: History of: Recurring Urinary Tract Infections No history of: Bladder Problem, Kidney Stones, Genitourinary Cancer, Problems Gastrointestinal: History of: GERD No history of: Bowel Obstruction, Clostridium Difficile, Crohn's Disease, Diverticulitis/ Diverticulosis, Esophageal Varices, Gastrointestinal Bleed, Hemorrhoids, Hematochezia, Hepatitis, Liver Problems, Pancreatitis, Polyps, Ulcerative Colitis, Gastrointestinal Cancer, GI Problems Reproductive: History of: Ectopic (two) - Surgical History Cardiac Surgeries: Patient Denies: Femoral-Popliteal Bypass Graft, Cardiac Catheterization, Cardiac Surgery, Carotid Endarterectomy, Internal Defibrillator, Vascular Access Devices Thoracic Surgeries: Patient denies;: Kidney (Renal Surgery), Lithotripsy, Nephrectomy, Lobectomy Neurologic Surgeries: Patient denies: Neurologic Surgery HEENT Surgeries: Surgical HX of: Eye Surgery (cateract) Patient denies: Carotid Endarterectomy Abdominal Surgeries: Patient denies: Abdominal Surgery, Appendectomy, Cholecystectomy, Colonoscopy , Gastric Bypass Surgery, EGD, Hernia Repair, Splenectomy Reproductive Surgeries: Surgical HX of;: Hysterectomy Patient denies;: Cystoscopy, Genitourinary Surgery - Family History Family History: Denies;: Family Anesthesia Reaction, Family Cancer, Family Diabetes, Family Heart Disease, Family Hypertension, Family Psychiatric Problems, Family Stroke - Social History Smoking Status: Former smoker (quit 30 years ago) Frequency of Alcohol Use: None Type of Drug Use: Unknown Physical Examination Vital Signs Temp Pulse Resp BP Pulse Ox 97.5 F L 147 H 28 H 138/92 100 12/21/16 11:48 12/21/16 11:48 12/21/16 11:48 12/21/16 11:48 12/21/16 11:48 General: Present: Appears Well, No Apparent Distress HEENT: Present: PERRL, Normocephaly, Mucus Membranes Moist. Absent: Jaundice Neck: Present: Supple Neck, Midline Trachea, No JVD/HJR, No Masses, No Bruit, No Lymphadenopathy, No Thyromegaly Cardiac: Present: Reg Rate and Rhythm, Regular Rate, Regular Rhythm, S1/S2, No Murmur. Absent: Gallop, Tachycardia, Bradycardia Lungs: Present: Normal Exam, Clear Ascult./Percussion, Normal Breath Sounds, No Wheeze, Rales, Rhonchi Neuro: Present: Cranial Nerve 2-12 Intact, Motor Function Intact, Coordination Normal Abdomen: Present: Soft, Active Bowel Sounds, No Masses, Non-Tender. Absent: Distended Skin: Present: Clear. Absent: Rash, Suspicious Lesions, Ulceration, Bruising Extremities: Present: Normal Gait, No Clubbing, No Cyanosis, No Edema Result/EKG - Labs CBC & BMP: 12/22/16 08:33 12/22/16 08:33 Lab Results: I have reviewed the past 24 hour labs Labs: Laboratory Results - last 24 hr 12/21/16 12/21/16 12/21/16 19:04 19:04 19:04 WBC RBC Hgb Hct MCV MCH MCHC RDW Plt Count MPV Neut % (Auto) Lymph % (Auto) [place] % (Auto) Eos % (Auto) Baso % (Auto) Neut # (Auto) Lymph # (Auto) [place] # (Auto) Eos # (Auto) Baso # (Auto) Total Counted Immature Gran % Nucleated RBC % Immature Gran # Segmented Neutrophils Band Neutrophils Lymphocytes Monocytes Nucleated RBCs # Platelet Estimate Sodium Potassium Chloride Carbon Dioxide Anion Gap BUN Creatinine GFR Calculation BUN/Creatinine Ratio Glucose Calculated Osmolality Lactic Acid 2.6 H Calcium Magnesium 1.6 L Total Creatine Kinase 334 H CK-MB (CK-2) 4.5 H Troponin I 0.101 H D Triglycerides 84 Cholesterol 151 LDL Cholesterol 79.0 VLDL Cholesterol 16.8 HDL Cholesterol 51 Heart Disease Risk Ratio 2.96 Amylase 48 Lipase 49.0 L D TSH 3rd Generation 0.209 L 12/21/16 12/21/16 12/22/16 19:54 19:54 08:33 WBC 23.4 H 23.8 H RBC 3.60 L 3.29 L Hgb 12.0 10.8 L Hct 36.2 32.4 L MCV 100.6 98.5 MCH 33 33 MCHC 33.1 33.3 RDW 12.9 13.0 Plt Count 156 D 165 MPV 11.7 11.6 Neut % (Auto) 88.2 H 85.0 H Lymph % (Auto) 5.0 L 8.5 L [place] % (Auto) 6.1 5.7 Eos % (Auto) 0.0 0.0 Baso % (Auto) 0.1 0.2 Neut # (Auto) 20.6 H 20.2 H Lymph # (Auto) 1.2 L 2.0 [place] # (Auto) 1.4 H 1.4 H Eos # (Auto) 0.0 0.0 Baso # (Auto) 0.0 0.0 Total Counted 100 Immature Gran % 0.6 0.6 Nucleated RBC % 0.0 0.0 Immature Gran # 0.15 0.15 Segmented Neutrophils 88 H Band Neutrophils 1 Lymphocytes 5 L Monocytes 6 Nucleated RBCs # 0.00 0.00 Platelet Estimate Normal Sodium 133 L Potassium 2.5 L* Chloride 87 L Carbon Dioxide 34 H Anion Gap 14.5 BUN 16 Creatinine 0.60 GFR Calculation 96 BUN/Creatinine Ratio 26.00 H Glucose 113 H Calculated Osmolality 267.4 L Lactic Acid Calcium 8.0 L Magnesium 1.6 L Total Creatine Kinase CK-MB (CK-2) Troponin I Triglycerides Cholesterol LDL Cholesterol VLDL Cholesterol HDL Cholesterol Heart Disease Risk Ratio Amylase Lipase TSH 3rd Generation - EKG EKG results: interpreted by me, sinus rhythm Quality Measures - VTE Contraindication to Pharmacological VTE Prophylaxis: Active Bleeding I, Lb Fox MD, personally performed the services described in this documentation, ascribed by Jhoana Pruitt RN in my presence, and it is both accurate and complete [id number] .
--- NOTE | 2016-12-22 15:09 | ECHO Report ---
Brianne Asher Exam Date: 12/22/2016 10:49 Referring Physician: Technologist: Blessing SESAY Age: 71 Ht (in): Wt (lb): Gender: F Exam Location: [facility] Echo Indications: elevated troponin BP: / HR: Rhythm: Sinus Technical Quality: Fair IMPRESSIONS Left ventricular ejection fraction is estimated at 60 % .Moderate concentric left ventricular hypertrophy. Grade I/IV diastolic dysfunction (abnormal relaxation filling pattern), normal to mildly elevated filling pressures. Normal right ventricular size. The right atrium is mildly enlarged. Moderately increased left atrial size. Mildly thickened mitral valve. Moderate mitral annular calcification. Mild mitral valve regurgitation. Aortic valve sclerosis. Trace aortic valve regurgitation. Mild TR. PAP40 mmHG. Morphologically normal pulmonic valve. No pericardial effusion. Normal size aortic root and proximal ascending aorta. MEASUREMENTS (Male / Female) Normal Values 2D ECHO LV Diastolic Diameter PLAX 4.4 cm 4.2 - 5.9 / 3.9 - 5.3 cm LV Systolic Diameter PLAX 3.3 cm LV Fractional Shortening PLAX 24.5 % IVS Diastolic Thickness 1.3 cm 0.6 - 1.0 / 0.6 - 0.9 cm LVPW Diastolic Thickness 1.3 cm 0.6 - 1.0 / 0.6 - 0.9 cm RV Internal Dim ED PLAX 2.3 cm Aortic Root Diameter 2.3 cm LA Systolic Diameter LX 3.8 cm 3.0 - 4.0 / 2.7 - 3.8 cm DOPPLER TR Peak Velocity 250.0 cm/s TR Peak Gradient 25.0 mmHg FINDINGS Left Ventricle Left ventricular ejection fraction is estimated at 60 % .moderate concentric left ventricular hypertrophy. Grade I/IV diastolic dysfunction (abnormal relaxation filling pattern), normal to mildly elevated filling pressures. Right Ventricle Normal right ventricular size. Right Atrium The right atrium is mildly enlarged. Left Atrium Moderately increased left atrial size. Mitral Valve Mildly thickened mitral valve. Moderate mitral annular calcification. Mild mitral valve regurgitation. Aortic Valve Aortic valve sclerosis. Trace aortic valve regurgitation. Tricuspid Valve Tricuspid valve not well visualized. Mild TR. PAP40 mmHG. Pulmonic Valve Morphologically normal pulmonic valve. Pericardium No pericardial effusion. Aorta Normal size aortic root and proximal ascending aorta. Chava Fox (Electronically Signed) Final Date: 22 December 2016 15:08
[2016-12-23] MEDS: PIPERACILLIN/TAZOBACTAM 3,375 MG in SODIUM CHLORIDE 0.9% 100 ML IV SCH ×3 (00:01→16:01)
[2016-12-23] MEDS: SODIUM CHLOR 0.9% KCL 40 MEQ 40 MEQ/1,000 ML BAG IV SCH ×2 (00:01→08:53)
[2016-12-23 01:47] LABS: Calcium 7.6 MG/DL (8.5-10.1); Magnesium 2.7 MG/DL (1.8-2.4); Potassium 4.7 MMOL/L (3.5-5.1)
[2016-12-23] MEDS: ONDANSETRON 4 MG/2 ML VIAL IV PRN (02:40)
--- NOTE | 2016-12-23 06:58 | Cardiology Progress Note ---
Assessment and Plan (1) Elevated troponin Status: Acute Current Visit: Yes (2) Hypomagnesemia Status: Acute Current Visit: Yes (3) Abdominal pain Status: Acute Current Visit: Yes (4) Coffee ground emesis Status: Acute Current Visit: Yes (5) Hypokalemia Status: Acute Current Visit: Yes (6) Intractable nausea and vomiting Status: Acute Current Visit: Yes (7) Sepsis Status: Acute Current Visit: Yes (8) Hypertension Status: Chronic Current Visit: No Qualifiers: Hypertension type: essential hypertension Qualified Code(s): I10 - Essential (primary) hypertension (9) Low TSH level Status: Acute Current Visit: Yes Cardiology - PN: Subj Interval history: Cardiology note. No further emesis. Telemetry shows steady sinus rhythm in the 70s and 80s O2 sat 93% on room air Blood pressure 138/84 Decreased breath sounds but clear Regular rhythm no gallop Abdomen nontender No leg edema Lab data today White count 23.8 hemoglobin 10.8 hematocrit 32.4 Sodium 136 potassium 4.7 chloride 99 CO2 26 BUN 9 creatinine 0.50 Glucose 76 Echo Doppler Ejection fraction 60% with concentric LVH, moderate dilated left atrium, calcified mitral annulus, aortic sclerosis, normal RV function, mild TR PA pressure 40 with grade 1 diastolic dysfunction Impression Coffee-ground emesis. Patient denies NSAID use but does use Tylenol. Gastritis /esophagitis suspected. Chronic hypertension Ejection fraction 60% Plan Holding Pletal EGD tomorrow Exam (Progress Note) - Constitutional Vitals: Period Temp Pulse Resp BP Sys/Joya Pulse Ox Last 24 Hr 98.5 F-98.7 F 60-102 12-24 92-183/51-95 92-100 Result/EKG - Labs CBC & BMP: 12/22/16 08:33 12/23/16 00:41 Labs: Laboratory Results - last 24 hr 12/22/16 12/22/16 12/22/16 08:30 08:33 08:33 WBC 23.8 H RBC 3.29 L Hgb 10.8 L Hct 32.4 L MCV 98.5 MCH 33 MCHC 33.3 RDW 13.0 Plt Count 165 MPV 11.6 Neut % (Auto) 85.0 H Lymph % (Auto) 8.5 L [place] % (Auto) 5.7 Eos % (Auto) 0.0 Baso % (Auto) 0.2 Neut # (Auto) 20.2 H Lymph # (Auto) 2.0 [place] # (Auto) 1.4 H Eos # (Auto) 0.0 Baso # (Auto) 0.0 Total Counted 100 Immature Gran % 0.6 Nucleated RBC % 0.0 Immature Gran # 0.15 Segmented Neutrophils 87 H Band Neutrophils 1 Lymphocytes 8 L Monocytes 4 Nucleated RBCs # 0.00 Platelet Estimate Normal Hypochromasia 1+ Morphology Comment Sodium 136 Potassium 3.8 Chloride 93 L Carbon Dioxide 36 H Anion Gap 10.8 BUN 9 Creatinine 0.60 GFR Calculation 97 BUN/Creatinine Ratio 15.00 Glucose 92 Calculated Osmolality 270.0 L Lactic Acid Calcium 8.0 L Magnesium Total Bilirubin 1.00 AST 30 ALT < 9 L Alkaline Phosphatase 54 Total Creatine Kinase CK-MB (CK-2) Troponin I Total Protein 5.6 L Albumin 2.4 L Globulin 3.2 Albumin/Globulin Ratio 0.7 L Free T4 1.59 H 12/22/16 12/22/16 12/23/16 08:33 08:33 00:41 WBC RBC Hgb Hct MCV MCH MCHC RDW Plt Count MPV Neut % (Auto) Lymph % (Auto) [place] % (Auto) Eos % (Auto) Baso % (Auto) Neut # (Auto) Lymph # (Auto) [place] # (Auto) Eos # (Auto) Baso # (Auto) Total Counted Immature Gran % Nucleated RBC % Immature Gran # Segmented Neutrophils Band Neutrophils Lymphocytes Monocytes Nucleated RBCs # Platelet Estimate Hypochromasia Morphology Comment Sodium 136 Potassium 4.7 Chloride 99 Carbon Dioxide 26 Anion Gap 15.7 H BUN 9 Creatinine 0.50 L GFR Calculation 103 BUN/Creatinine Ratio 18.00 Glucose 76 Calculated Osmolality 269.0 L Lactic Acid 1.3 Calcium 7.6 L Magnesium 2.7 H Total Bilirubin AST ALT Alkaline Phosphatase Total Creatine Kinase 239 H D CK-MB (CK-2) 3.8 H Troponin I 0.072 H D Total Protein Albumin Globulin Albumin/Globulin Ratio Free T4 Quality Measures - VTE Contraindication to Pharmacological VTE Prophylaxis: Active Bleeding
[2016-12-23] MEDS: PANTOPRAZOLE 40 MG VIAL IV SCH (08:53)
[2016-12-23] MEDS: METOPROLOL TARTRATE 50 MG TABLET PO SCH ×2 (08:54→22:42)
[2016-12-23] MEDS: POTASSIUM CHLORIDE 20 MEQ TABLET PO SCH (08:54)
[2016-12-23] MEDS: GABAPENTIN 100 MG CAPSULE PO SCH ×2 (08:54→22:42)
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
[2016-12-23] MEDS ORDERED: ALUM/MAG/SIMETH/LIDO VISC 1:1 30 ML BOTTLE PO ONE (09:32)
[2016-12-23] MEDS ORDERED: MAGNESIUM HYDROXIDE SUSP 30 ML UDCUP PO PRN (09:32)
--- NOTE | 2016-12-23 11:00 | Gastrointestinal Progress Note ---
Assessment and Plan (1) Coffee ground emesis Status: Acute Assessment and plan: 12/23-No further coffee ground emesis, mild abd pain. Hold Pletal and plan for EGD tomorrow. Plan and addendum to follow by Dr Crockett. 12/22-Two episodes of dark emesis with vague abd pain two days ago. No prior hx of PUD, NSAIDs. No prior endoscopy. Hgb stable at 10. CT with findings of thickening of distal esophagus. recommendation for EGD. Plan and addendum to follow by Dr Crockett. Current Visit: Yes Gastroenterology - PN: Subj Interval history: CC: Coffee ground emesis Pt is awake, sitting up in bed. States she is feeling better today. She had some nausea this morning with episode of vomiting however no overt bleeding with this. She states she had some vague abdominal pain as well this morning but this is improved. Abdomen is soft, nontender. Pletal being held and for possible EGD tomorrow. ROS: Denies SOB or chest pain Exam (Progress Note) - Constitutional Vitals: Period Temp Pulse Resp BP Sys/Joya Pulse Ox Last 24 Hr 98.5 F-98.7 F 60-102 12-24 92-172/51-95 92-100 General appearance: normal weight, no acute distress - Head Head exam: Present: normal inspection, normocephalic - Eye Eye exam: Present: other (lids and conjunctiva unremarkable). Absent: scleral icterus - ENT ENT exam: Present: normal exam, normal oropharynx - Neck Neck exam: Present: normal inspection - Respiratory Respiratory exam: Present: clear to auscultation bilaterally. Absent: rales, rhonchi, wheezes - Cardiovascular Cardiovascular exam: Present: regular rate and rhythm. Absent: diastolic murmur , JVD, systolic murmur - GI/Abdominal GI/Abdominal exam: Present: normal bowel sounds, soft. Absent: ascites, distended, mass, organomegaly, tenderness - Extremities Exam Extremities exam: Present: normal inspection, full ROM - Back Exam Back exam: Present: normal inspection - Neurological Exam Neurological exam: Present: alert, oriented X3 - Psychiatric Psychiatric exam: Present: normal affect, normal mood - Skin Skin exam: Present: normal color, warm, dry Results - Labs CBC & BMP: 12/22/16 08:33 12/23/16 00:41 Lab Results: I have reviewed the past 24 hour labs
[2016-12-23] MEDS ORDERED: SODIUM CHLORIDE 0.9% 1,000 ML IV SCH (12:00)
[2016-12-23] MEDS: LORazepam 2 MG/1 ML VIAL IV PRN ×2 (16:00→22:25)
[2016-12-23] MEDS ORDERED: chlordiazePOXIDE 25 MG CAPSULE PO ONE (17:41)
--- NOTE | 2016-12-23 18:22 | CT Report ---
CT head/brain wo con Indication: Overdose status. CT BRAIN WITHOUT CONTRAST DLP: 9:15 mGy*cm Comparison: None. Date of admission: 12/21/2016. Technique: Axial noncontrast CT images of the brain were obtained. Findings: No acute hemorrhage, mass or mass effect. Generalized atrophy and patchy periventricular white matter hypodensity is present throughout both convexities. Subacute or early chronic lacunar infarct of the right burgess radiata noted. Cortical archer-white junction and structures of the basal ganglia are well-defined. No bone lesions are shown. Internal auditory canals are symmetric. Visualized sinuses and mastoid air cells are clear. Impression: No acute intracranial pathology. Generalized atrophy and changes consistent with microvascular disease. Subacute or early chronic lacunar infarct right burgess radiata. PROCEDURE INTERPRETED AT [facility] DEPARTMENT OF RADIOLOGY Final Report Signed by: Bishop Bryant M.D.
[2016-12-23] MEDS ORDERED: ZIPRASIDONE 20 MG/1 ML VIAL IM ONE (18:30)
[2016-12-23] MEDS: MORPHINE 2 MG/1 ML SYRINGE IV PRN (18:31)
[2016-12-23] MEDS: THIAMINE INJ 100 MG, FOLIC ACID INJ 1 MG, MULTIVITAMIN INJ 10 ML in SODIUM CHLORIDE 0.9... IV SCH (18:31)
[2016-12-23] MEDS: chlordiazePOXIDE 25 MG CAPSULE PO SCH (21:06)
[2016-12-23 23:10] LABS: Apearance,Urine CLEAR (Clear); Bilirubin,Urine Negative (Negative); Blood, Urine Negative (Negative); Glucose,Urine (UA) Negative (Negative); Ketones,Urine 20 mg/dL (Negative); Mucus,Urine Occasional /LPF (Occasional); Nitrite,Urine Negative (Negative); Protein,Urine Negative; RBC,Urine 1 /HPF (0-4); Squamous Epithelial Cell,Urine Occasional /HPF (0-10); Urine Color Straw (Yellow); Urine Specific Gravity 1.008 (1.001-1.035); Urine Urobilinogen < 2.0 EU/DL (0.2-1.0)
[2016-12-24] MEDS: PIPERACILLIN/TAZOBACTAM 3,375 MG in SODIUM CHLORIDE 0.9% 100 ML IV SCH ×4 (00:17→23:18)
[2016-12-24 03:34] LABS: Basophils # 0.1 10*3/uL (0.0-0.2); Basophils % 0.8 % (0.0-0.8); Eosinophils # 0.2 10*3/uL (0.0-0.87); Eosinophils % 1.6 % (0.00-10.9); Hematocrit 32.6 VOL% (35.7-47.0); Hemoglobin 10.7 GM/DL (12.0-16.0); Immature Granulocytes % 1.4 %; Immature Granulocytes Absolute 0.18 #; Lymphocytes # 2.2 10*3/uL (1.4-4.0); Lymphocytes % 17.2 % (21.3-54.2); Mean Corpuscular HGB Conc 32.8 GM/DL (32-36); Mean Corpuscular Hemoglobin 33 PG (27-34); Mean Corpuscular Volume 101.6 FL (87-102); Mean Platelet Volume 12.2 FL (9.6-12.0); Monocytes # 1.3 10*3/uL (0.11-0.8); Monocytes % 9.7 % (1.7-12.7); Neutrophils % 69.3 % (38.7-73.9); Platelet Count 176 T/CUMM (130-400); Red Blood Count 3.21 MC/CUMM (3.8-5.5); Red Cell Distribution Width 12.8 % (9.3-17.3); White Blood Count 12.9 T/CUMM (4-12)
[2016-12-24] MEDS: LABETALOL 20 MG/4 ML SYRINGE IV PRN (03:42)
[2016-12-24 04:01] LABS: Calcium 8.1 MG/DL (8.5-10.1); Osmolality,Calculated 278.1 MOS/KG (273-304); Potassium 4.5 MMOL/L (3.5-5.1)
[2016-12-24] MEDS: LORazepam 2 MG/1 ML VIAL IV PRN (04:09)
--- NOTE | 2016-12-24 07:15 | Cardiology Progress Note ---
Assessment and Plan (1) Elevated troponin Status: Acute Current Visit: Yes (2) Hypomagnesemia Status: Acute Current Visit: Yes (3) Abdominal pain Status: Acute Current Visit: Yes (4) Coffee ground emesis Status: Acute Current Visit: Yes (5) Hypokalemia Status: Acute Current Visit: Yes (6) Intractable nausea and vomiting Status: Acute Current Visit: Yes (7) Sepsis Status: Acute Current Visit: Yes (8) Hypertension Status: Chronic Current Visit: No Qualifiers: Hypertension type: essential hypertension Qualified Code(s): I10 - Essential (primary) hypertension (9) Low TSH level Status: Acute Current Visit: Yes Cardiology - PN: Subj Interval history: Cardiology note 71 woman with chronic hypertension admitted with coffee-ground emesis Blood pressure running a little high 170/92 Telemetry shows steady sinus rhythm O2 sat 96% on 2 L Decreased breath sounds but clear Regular rhythm no gallop Abdomen soft benign Lab data today Hemoglobin 10.7 hematocrit 32.6 white count 12.9 Sodium 142 potassium 4.5 chloride 105 CO2 24 BUN 5 creatinine 0.4 glucose 72 Impression Coffee-ground emesis Chronic hypertension EF 60% by recent echo Plan EGD today Pletal on hold Increase lisinopril 10 mg daily Exam (Progress Note) - Constitutional Vitals: Period Temp Pulse Resp BP Sys/Joya Pulse Ox Last 24 Hr 98.9 F-99.2 F 80-106 14-21 119-181/70-130 92-98 Result/EKG - Labs CBC & BMP: 12/24/16 02:27 12/24/16 02:27 Labs: Laboratory Results - last 24 hr 12/23/16 12/24/16 12/24/16 19:50 02:27 02:27 WBC 12.9 H D RBC 3.21 L Hgb 10.7 L Hct 32.6 L MCV 101.6 MCH 33 MCHC 32.8 RDW 12.8 Plt Count 176 MPV 12.2 H Neut % (Auto) 69.3 Lymph % (Auto) 17.2 L [place] % (Auto) 9.7 Eos % (Auto) 1.6 Baso % (Auto) 0.8 Neut # (Auto) 9.0 H Lymph # (Auto) 2.2 Andrew # (Auto) 1.3 H Eos # (Auto) 0.2 Baso # (Auto) 0.1 Immature Gran % 1.4 Nucleated RBC % 0.0 Immature Gran # 0.18 Nucleated RBCs # 0.00 Sodium 142 Potassium 4.5 Chloride 105 Carbon Dioxide 24 Anion Gap 17.5 H BUN 5 L Creatinine 0.40 L GFR Calculation 112 BUN/Creatinine Ratio 12.00 Glucose 72 L Calculated Osmolality 278.1 Calcium 8.1 L Urine Color Straw Urine Appearance Clear Urine pH 7.0 Ur Specific [place] 1.008 Urine Protein Negative Urine Glucose (UA) Negative Urine Ketones 20 Urine Blood Negative Urine Nitrate Negative Urine Bilirubin Negative Urine Urobilinogen < 2.0 H Urine Leukocytes Negative Urine RBC 1 Ur Squamous Epith Cells Occasional Urine Mucus Occasional Ur Culture Indicated? Not indicated Quality Measures - VTE Contraindication to Pharmacological VTE Prophylaxis: Active Bleeding
[2016-12-24] MEDS ORDERED: LABETALOL 20 MG/4 ML SYRINGE IV ONE (07:16)
[2016-12-24] MEDS: PANTOPRAZOLE 40 MG VIAL IV SCH (08:30)
[2016-12-24] MEDS: chlordiazePOXIDE 25 MG CAPSULE PO SCH ×2 (08:31→21:02)
[2016-12-24] MEDS: LISINOPRIL 10 MG TABLET PO SCH (08:31)
[2016-12-24] MEDS: METOPROLOL TARTRATE 50 MG TABLET PO SCH ×2 (08:31→21:02)
[2016-12-24] MEDS: GABAPENTIN 100 MG CAPSULE PO SCH ×2 (08:34→21:02)
[2016-12-24] MEDS ORDERED: LISINOPRIL 5 MG TABLET PO SCH (09:00)
[2016-12-24] MEDS: ONDANSETRON 4 MG/2 ML VIAL IV PRN (09:40)
[2016-12-24] MEDS: MORPHINE 2 MG/1 ML SYRINGE IV PRN (09:40)
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
[2016-12-24] MEDS: hydroCHLOROthiazide 25 MG TABLET PO SCH (11:53)
[2016-12-24] MEDS ORDERED: PROPOFOL 200 MG/20 ML VIAL IV ONE (12:30)
[2016-12-24] MEDS ORDERED: LIDOCAINE 1% 5 ML VIAL ONE (12:30)
--- NOTE | 2016-12-24 12:30 | History and Physical Update ---
History and Physical Update - Physical Exam Mental Status: alert and oriented Heart: regular rate and rhythm Lung: clear to auscultation Abdomen: within normal limits Vitals: within normal limits History and Physical Changes: 71-year-old female has had recent hematemesis a few days ago but stable since.
--- NOTE | 2016-12-24 12:40 | Operative Note ---
Date of procedure: 12/24/16 Pre-op diagnosis: Upper GI bleed Procedure: Procedure: Esophagogastroduodenoscopy Brief clinical abstract: Patient is a 71-year-old female who had several episodes of hematemesis on admission. This has not recurred and hemoglobin has been stable. Indication for procedure: Hematemesis Endoscopic findings:[After informed consent was obtained, the patient was placed in the left lateral decubitus position. The gastroscope was inserted in the upper esophagus under direct vision with no resistance encountered. Esophageal mucosa appeared normal in the cervical esophagus down to level 6-7 cm below the cricopharyngeus with circumferential ulceration noted distal to this and extending all the way down to the squamocolumnar junction. She had a small hiatal hernia. The appearance of this was consistent with reflux etiology /recent vomiting. No visible vessel or adherent clot was seen. The endoscope was advanced in the stomach which was carefully examined including retroflexed view of the cardia and fundus with no abnormalities noted. The pyloric channel , duodenal bulb, second and third portion of the duodenum were normal. The endoscope was withdrawn and patient appeared to tolerate the procedure well. Impression: #1 severe ulcerative esophagitis-appearance consistent with reflux/ recent vomiting etiology. Would not expect significant further bleeding risk with this. #2 small hiatal hernia Recommendations: Twice daily PPI therapy for 1 month then decrease back to once daily. I will sign off. Please call if needed.. Anesthesia: MAC Surgeon / Physician: Salty Crockett Estimated blood loss: none Specimens: none sent Condition: stable Disposition: post procedure unit Results - Labs CBC & BMP: 12/24/16 02:27 12/24/16 02:27 Discharge Plan - Discharge Medications No Action cloNIDine HCl [Clonidine HCl] 0.2 mg PO BID Cilostazol 100 mg PO BID Gabapentin Cap/Tab [Neurontin Cap/Tab] 100 mg PO BID Potassium Chloride Cap/Tab [K Dur] 20 meq PO DAILY HYDROcodone/ACETAMIN 7.5-325 [[place] 7.5-325] 2 tablet PO Q6H PRN PRN Reason: Pain Severe (8-10) Metoprolol Tartrate 50 mg PO BID - Follow Up or Referral - Forms/Instructions
--- NOTE | 2016-12-24 12:44 | Anesthesia ---
Anesthesia Post OP - Post Ansesthetic Evaluation Patient seen in post op: Yes Resp: within normal limits CV: within normal limits Mental: within normal limits Temp: within normal limits [id number]: within normal limits Nausea and Vomiting: within normal limits Pain: within normal limits
[2016-12-24] MEDS: PANTOPRAZOLE 40 MG TABLET PO SCH (21:03)
[2016-12-24] MEDS: THIAMINE INJ 100 MG, FOLIC ACID INJ 1 MG, MULTIVITAMIN INJ 10 ML in SODIUM CHLORIDE 0.9... IV SCH (21:42)
[2016-12-25] MEDS: chlordiazePOXIDE 25 MG CAPSULE PO SCH ×2 (08:32→22:34)
[2016-12-25] MEDS: GABAPENTIN 100 MG CAPSULE PO SCH ×2 (08:33→22:34)
[2016-12-25] MEDS: PANTOPRAZOLE 40 MG TABLET PO SCH ×2 (08:34→22:34)
[2016-12-25] MEDS: LISINOPRIL 10 MG TABLET PO SCH (08:35)
[2016-12-25] MEDS: hydroCHLOROthiazide 25 MG TABLET PO SCH (08:35)
[2016-12-25] MEDS: METOPROLOL TARTRATE 50 MG TABLET PO SCH ×2 (08:35→22:33)
[2016-12-25] MEDS: PIPERACILLIN/TAZOBACTAM 3,375 MG in SODIUM CHLORIDE 0.9% 100 ML IV SCH ×2 (08:36→16:39)
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
--- NOTE | 2016-12-25 17:21 | Cardiology Progress Note ---
Lit Beard April, RN, am scribing for, and in the presence of, Renetta Fair DO 17 :21. Assessment and Plan - Time spent with patient Time spent with patient: Less than 30 minutes (1) Abdominal pain Status: Acute Current Visit: Yes (2) Coffee ground emesis Status: Acute Current Visit: Yes (3) Hypertension Status: Chronic Current Visit: No Qualifiers: Hypertension type: essential hypertension Qualified Code(s): I10 - Essential (primary) hypertension Cardiology - PN: Subj Interval history: Resting in bed in no acute distress. She denies chest pain. She says she will sometimes have a sharp pain shoot through her abdomen, but it is not tender on exam. She denies any further hematemesis. She had EGD yesterday that showed small hiatal hernia and severe ulcerative esohagitis, that appeared consistent with reflux/recent vomiting. Her Lisinopril was increased yesterday, and her pressures are a little better today. Lb had a EGD today showed ulcerative esophagitis she has pain every time she swallows she has bowel sounds in her chest consistent with her history of hiatal hernia. She has no exertional chest pain prior to coming in the hospital but states she has not walked since she was in the hospital. She states she can walk all over her house without difficulty. We have nothing further to add at this time we will sign off. Exam (Progress Note) - Constitutional Vitals: Period Temp Pulse Resp BP Sys/Joya Pulse Ox Last 24 Hr 97.6 F-99.0 F 69-108 16-24 139-189/69-99 95-100 General appearance: normal weight, no acute distress - Head Head exam: Absent: abrasion, hematoma - Eye Eye exam: Absent: periorbital swelling, laceration to eyelids - Neck Neck exam: Absent: tenderness - Respiratory Respiratory exam: Present: clear to auscultation bilaterally. Absent: accessory muscle use, chest wall tenderness - Cardiovascular Cardiovascular exam: Present: regular rate and rhythm - GI/Abdominal GI/Abdominal exam: Present: normal bowel sounds, soft. Absent: distended, tenderness - Extremities Exam Extremities exam: Absent: edema - Neurological Exam Neurological exam: Present: alert, oriented X3 - Skin Skin exam: Present: warm, dry Result/EKG - Labs CBC & BMP: 12/24/16 02:27 12/24/16 02:27 Quality Measures - VTE Contraindication to Pharmacological VTE Prophylaxis: Active Bleeding I, Renetta Fair, , personally performed the services described in this documentation, ascribed by Sol Murrieta RN in my presence, and it is both accurate and complete .
[2016-12-25] MEDS: MORPHINE 2 MG/1 ML SYRINGE IV PRN (19:22)
[2016-12-26] MEDS: PIPERACILLIN/TAZOBACTAM 3,375 MG in SODIUM CHLORIDE 0.9% 100 ML IV SCH ×2 (00:40→08:48)
[2016-12-26] MEDS: THIAMINE INJ 100 MG, FOLIC ACID INJ 1 MG, MULTIVITAMIN INJ 10 ML in SODIUM CHLORIDE 0.9... IV SCH (00:40)
[2016-12-26] MEDS: hydroCHLOROthiazide 25 MG TABLET PO SCH (08:46)
[2016-12-26] MEDS: chlordiazePOXIDE 25 MG CAPSULE PO SCH ×2 (08:46→20:45)
[2016-12-26] MEDS: METOPROLOL TARTRATE 50 MG TABLET PO SCH ×2 (08:47→20:45)
[2016-12-26] MEDS: PANTOPRAZOLE 40 MG TABLET PO SCH ×2 (08:47→20:45)
[2016-12-26] MEDS: LISINOPRIL 10 MG TABLET PO SCH (08:47)
[2016-12-26] MEDS: ALUMINUM/MAGNES/SIMETH MAX STR 30 ML UDCUP PO PRN (08:48)
[2016-12-26] MEDS: GABAPENTIN 100 MG CAPSULE PO SCH ×2 (09:00→20:45)
[2016-12-26] MEDS: MORPHINE 2 MG/1 ML SYRINGE IV PRN ×3 (10:23→22:26)
--- NOTE | 2016-12-26 14:55 | Hospitalist Progress Note ---
Assessment and Plan (1) Intractable nausea and vomiting Status: Acute Assessment and plan: with epigastric pain: improved .She had EGD yesterday that showed small hiatal hernia and severe ulcerative esohagitis CT showed no evidence of obstruction. H/H-stable,no more episodes of nausea, vomiting. plan d/c IVF, continue PPIs Blood cultures- no growth Continue pain meds and antiemetics follow H.pylori Current Visit: Yes (2) Coffee ground emesis Status: Acute Assessment and plan: s/p EGD which showed small hiatal hernia and severe ulcerative esophagitis continue with PPIs, -H/H is stable Current Visit: Yes (3) Hypertension Status: Chronic Assessment and plan: stable Current Visit: No Qualifiers: Hypertension type: essential hypertension Qualified Code(s): I10 - Essential (primary) hypertension (4) Hypokalemia Status: Acute Assessment and plan: repleted. Current Visit: Yes (5) Elevated troponin Status: Acute Assessment and plan: this could be due to sepsis to r/o ACS Patient apparently fell flat on her face at home prior to coming to the hospital , developing chest pain and tenderness.She also states a history of heart burn. Echo showed:Ejection fraction 60% with concentric LVH, moderate dilated left atrium, calcified mitral annulus, aortic sclerosis, normal RV function, mild TR PA pressure 40 with grade 1 diastolic dysfunction Cardiology is following. Current Visit: Yes (6) Sepsis Status: Acute Assessment and plan: possible sepsis with the tachycardia,elevated WBC,lactic acid - cultures- negative so far, will switch IV Zosyn to po. Current Visit: Yes (7) Acute encephalopathy Status: Acute Assessment and plan: due to alcohol withdrawal-improving CT head showed no acute intra cranial pathology, generalized atrophy and changes consistent with microvascular disease. Subacute or early chronic lacunar infarct right burgess radiata. Plan dc IVF, switch thiamine, folic acid and multivitamins to po, Ativan prn, Librium PT consult-patient to ambulate more. Current Visit: Yes Hospitalist: Subjective Interval history: Patient seen, she was more coherent, requested for something for gas. Exam - Constitutional Vitals: Period Temp Pulse Resp BP Sys/Joya Pulse Ox Last 24 Hr 96.2 F-98.5 F 65-88 15-20 115-151/63-74 96-100 General appearance: no acute distress - Head Head exam: Present: normal inspection - Respiratory Respiratory exam: Present: clear to auscultation bilaterally - Cardiovascular Cardiovascular exam: Present: regular rate and rhythm - GI/Abdominal GI/Abdominal exam: Present: normal bowel sounds - Extremities Exam Extremities exam: Present: normal inspection Results - Labs CBC & BMP: 12/24/16 02:27 12/24/16 02:27 Lab Results: I have reviewed the past 24 hour labs Quality Measures - VTE Contraindication to Pharmacological VTE Prophylaxis: Active Bleeding
[2016-12-27] MEDS: ONDANSETRON 4 MG/2 ML VIAL IV PRN (07:56)
[2016-12-27] MEDS: METOPROLOL TARTRATE 50 MG TABLET PO SCH ×2 (09:47→22:33)
[2016-12-27] MEDS: LISINOPRIL 10 MG TABLET PO SCH (09:47)
[2016-12-27] MEDS: THIAMINE 100 MG TABLET PO SCH (09:47)
[2016-12-27] MEDS: hydroCHLOROthiazide 25 MG TABLET PO SCH (09:47)
[2016-12-27] MEDS: chlordiazePOXIDE 25 MG CAPSULE PO SCH ×2 (09:47→20:49)
[2016-12-27] MEDS: MULTIVITAMIN (CENTRUM) TABLET PO SCH (09:47)
[2016-12-27] MEDS: FOLIC ACID 1 MG TABLET PO SCH (09:47)
[2016-12-27] MEDS: PANTOPRAZOLE 40 MG TABLET PO SCH ×2 (09:48→20:50)
[2016-12-27] MEDS: GABAPENTIN 100 MG CAPSULE PO SCH ×2 (09:48→20:49)
[2016-12-27] MEDS: ALUMINUM/MAGNES/SIMETH MAX STR 30 ML UDCUP PO PRN (09:57)
--- NOTE | 2016-12-27 12:17 | Hospitalist Progress Note ---
Assessment and Plan (1) Intractable nausea and vomiting Status: Acute Assessment and plan: with epigastric pain: improved .She had EGD yesterday that showed small hiatal hernia and severe ulcerative esohagitis CT showed no evidence of obstruction. Blood cultures- no growth H/H-stable,no more episodes of nausea, vomiting. plan continue PPIs Continue pain meds and antiemetics follow H.pylori Current Visit: Yes (2) Coffee ground emesis Status: Acute Assessment and plan: s/p EGD which showed small hiatal hernia and severe ulcerative esophagitis continue with PPIs, -H/H is stable Current Visit: Yes (3) Hypertension Status: Chronic Assessment and plan: stable Current Visit: No Qualifiers: Hypertension type: essential hypertension Qualified Code(s): I10 - Essential (primary) hypertension (4) Hypokalemia Status: Acute Assessment and plan: repleted. Current Visit: Yes (5) Elevated troponin Status: Acute Assessment and plan: this could be due to sepsis to r/o ACS Patient apparently fell flat on her face at home prior to coming to the hospital , developing chest pain and tenderness.She also states a history of heart burn. Echo showed:Ejection fraction 60% with concentric LVH, moderate dilated left atrium, calcified mitral annulus, aortic sclerosis, normal RV function, mild TR PA pressure 40 with grade 1 diastolic dysfunction Cardiology is following. Current Visit: Yes (6) Sepsis Status: Acute Assessment and plan: sepsis ruled out - cultures- negative so far, will dc IV Zosyn Current Visit: Yes (7) Acute encephalopathy Status: Acute Assessment and plan: due to alcohol withdrawal-improving CT head showed no acute intra cranial pathology, generalized atrophy and changes consistent with microvascular disease. Subacute or early chronic lacunar infarct right burgess radiata. Plan continue current care PT consult-patient to ambulate more. Current Visit: Yes Hospitalist: Subjective Interval history: Patient seen. she looked better, no new issues.Will remove Roldan so patient can ambulate more. Exam - Constitutional Vitals: Period Temp Pulse Resp BP Sys/Joya Pulse Ox Last 24 Hr 97.9 F-98.6 F 62-72 16-20 108-133/52-70 97-99 General appearance: no acute distress - Head Head exam: Present: normal inspection - Respiratory Respiratory exam: Present: clear to auscultation bilaterally - Cardiovascular Cardiovascular exam: Present: regular rate and rhythm - GI/Abdominal GI/Abdominal exam: Present: normal bowel sounds - Extremities Exam Extremities exam: Present: normal inspection Results - Labs CBC & BMP: 12/24/16 02:27 12/24/16 02:27 Lab Results: I have reviewed the past 24 hour labs Quality Measures - VTE Contraindication to Pharmacological VTE Prophylaxis: Active Bleeding
[2016-12-28] MEDS: chlordiazePOXIDE 25 MG CAPSULE PO SCH ×2 (09:20→22:06)
[2016-12-28] MEDS: THIAMINE 100 MG TABLET PO SCH (09:20)
[2016-12-28] MEDS: FOLIC ACID 1 MG TABLET PO SCH (09:21)
[2016-12-28] MEDS: hydroCHLOROthiazide 25 MG TABLET PO SCH (09:21)
[2016-12-28] MEDS: PANTOPRAZOLE 40 MG TABLET PO SCH ×2 (09:21→22:07)
[2016-12-28] MEDS: GABAPENTIN 100 MG CAPSULE PO SCH ×2 (09:21→22:07)
[2016-12-28] MEDS: METOPROLOL TARTRATE 50 MG TABLET PO SCH ×2 (09:21→22:07)
[2016-12-28] MEDS: LISINOPRIL 10 MG TABLET PO SCH (09:21)
[2016-12-28] MEDS: MULTIVITAMIN (CENTRUM) TABLET PO SCH (09:21)
[2016-12-28] MEDS: ALUMINUM/MAGNES/SIMETH MAX STR 30 ML UDCUP PO PRN ×2 (09:38→16:43)
--- NOTE | 2016-12-28 15:41 | Hospitalist Progress Note ---
Assessment and Plan (1) Intractable nausea and vomiting Status: Acute Assessment and plan: with epigastric pain: improved .She had EGD that showed small hiatal hernia and severe ulcerative esohagitis CT showed no evidence of obstruction. Blood cultures- no growth H/H-stable plan continue PPIs Continue pain meds and antiemetics follow H.pylori Current Visit: Yes (2) Coffee ground emesis Status: Acute Assessment and plan: s/p EGD which showed small hiatal hernia and severe ulcerative esophagitis continue with PPIs, -H/H is stable Current Visit: Yes (3) Hypertension Status: Chronic Assessment and plan: stable Current Visit: No Qualifiers: Hypertension type: essential hypertension Qualified Code(s): I10 - Essential (primary) hypertension (4) Hypokalemia Status: Acute Assessment and plan: repleted. Current Visit: Yes (5) Elevated troponin Status: Acute Assessment and plan: She also states a history of heart burn. Echo showed:Ejection fraction 60% with concentric LVH, moderate dilated left atrium, calcified mitral annulus, aortic sclerosis, normal RV function, mild TR PA pressure 40 with grade 1 diastolic dysfunction Cardiology has signed off. Current Visit: Yes (6) Sepsis Status: Acute Assessment and plan: sepsis ruled out - cultures- negative so far, will dc IV Zosyn Current Visit: Yes (7) Acute encephalopathy Status: Acute Assessment and plan: due to alcohol withdrawal-improved CT head showed no acute intra cranial pathology, generalized atrophy and changes consistent with microvascular disease. Subacute or early chronic lacunar infarct right burgess radiata. Plan continue current care PT consult-patient to ambulate more, dc planning Current Visit: Yes Hospitalist: Subjective Interval history: Patient seen. She has not been ambulating, will need a PT consult, we will dc jerrica. Exam - Constitutional Vitals: Period Temp Pulse Resp BP Sys/Joya Pulse Ox Last 24 Hr 98 F-98.8 F 65-74 14-20 108-134/53-62 95-100 General appearance: no acute distress - Head Head exam: Present: normal inspection - Respiratory Respiratory exam: Present: clear to auscultation bilaterally - Cardiovascular Cardiovascular exam: Present: regular rate and rhythm - GI/Abdominal GI/Abdominal exam: Present: normal bowel sounds - Extremities Exam Extremities exam: Present: normal inspection Results - Labs CBC & BMP: 12/24/16 02:27 12/24/16 02:27 Lab Results: I have reviewed the past 24 hour labs Quality Measures - VTE Contraindication to Pharmacological VTE Prophylaxis: Active Bleeding
--- NOTE | 2016-12-29 08:55 | Discharge Summary ---
<Edwige Faye N - Last Filed: 12/29/16 08:44> Hospital Course - Hospital Course Hospital Course: Ms. Asher is a 71 year old female who was admitted on 12/21/16 for intractable nausea and vomiting, coffee ground emesis, hypertension, hypokalemia, elevated troponin and sepsis. She was started on IVF, pain meds, IV Zosyn. General surgery was consulted, Dr. De Jesus saw no immediate need for intervention. GI was consulted, Dr. Crockett saw pt on 12/22, her Pletal was held and she had an EGD done on 12/24 with findings of small hiatal hernia and severe ulcerative esophagitis. He was started on PPI therapy and may follow up with Dr. Crockett if needed. He was also seen in consult by cardiology, Dr. Fox and Dr. Fair. He had an Echo done showing an EF of 60%. Her chronic htn was managed and they felt that her minimal troponin elevation was insignificant, she remained chest pain free and in SR. She requires no cardiology follow up. She required no transfusions for her GI bleeding, H/H is remained stable at 1032, has not been rechecked since 12/24. All urine and blood cultures showed no growth , she was treated with IV Zosyn. Pt had no further bleeding and tolerated PPI therapy well, was hydrated well. She was treated with banana bag and then switched to PO Librium for her alcohol withdrawals that occurred on this admission. She is well improved medically. However she is noted to be quite debilitated from this admit. She has refused all swing bed options and a PT consult has been initiated. She used to have home health and we will try to get this restarted for her and potentially home PT. We have encouraged her to stay sober. She can be discharged to home today. Please see discharge medication reconciliation for accurate list. Discharge Plan - Discharge Medications No Action cloNIDine HCl [Clonidine HCl] 0.2 mg PO BID Cilostazol 100 mg PO BID Gabapentin Cap/Tab [Neurontin Cap/Tab] 100 mg PO BID Potassium Chloride Cap/Tab [K Dur] 20 meq PO DAILY HYDROcodone/ACETAMIN 7.5-325 [[place] 7.5-325] 2 tablet PO Q6H PRN PRN Reason: Pain Severe (8-10) Metoprolol Tartrate 50 mg PO BID - Follow Up or Referral - Forms/Instructions Exam - Constitutional Vitals: Period Temp Pulse Resp BP Sys/Joya Pulse Ox Last 24 Hr 96.6 F-98.6 F 60-71 16-20 115-143/54-71 96-100 Discharge Results Procedures and tests throughout hospitalization: Pending Orders 12/21/16 18:13 Helicobacter pylori Ag Feces Routine Labs on day of discharge: Labs from last 24 hours 12/29/16 12/29/16 10:56 07:16 POC Glucose 126 H 125 H DS: Provider Date of admission: 12/21/16 17:07 Primary care physician: Salty Whitaker, Attending physician on admission: Ligia Torres MD Consults: 12/21/16 18:13 Consult to Physician [CONS] Routine Comment: Consulting Provider: Salty Crockett Consulting Provider Notified: Yes Consult to Specialist Group: Gastroenterology When should Consulting Provider be notified: In am Person Notified: JACE Date Notified: 12/22/16 Time Notified: 09:20 12/21/16 18:17 Consult to Pharmacy [CONS] Routine Reason for Pharmacy Consult: Adjust Meds Renal Funct 12/21/16 18:31 Consult to Dietitian [CONS] Routine Reason for Dietitian: Other 12/22/16 08:05 Consult to Physician [CONS] Routine Comment: Consulting Provider: 12/26/16 15:05 Consult to Physical Therapy [CONS] Routine Reason for Physical Therapy: Evaluate and Treat 12/28/16 15:40 Consult to Case Mgmt/Social Srvs [CONS] Routine Reason for Case Mgmt/Social Srvs: Discharge Planning 12/29/16 10:26 Consult to Case Mgmt/Social Srvs [CONS] Routine Reason for Case Mgmt/Social Srvs: Discharge Planning Consult Comment: SWING BED PLACEMENT FOR TOMORROW. Discharging clinician: KEANU Wyatt <Ligia Torres - Last Filed: 12/29/16 11:54> Hospital Course - Hospital Course Hospital Course: Patient's dc will be held, I feel she is too weak to go home,I have asked for a swing bed evaluation. Diagnosis - Discharge Diagnosis (1) Intractable nausea and vomiting Status: Acute (2) Coffee ground emesis Status: Acute (3) Hypertension Status: Chronic (4) Hypokalemia Status: Acute (5) Elevated troponin Status: Acute (6) Sepsis Status: Acute (7) Acute encephalopathy Status: Acute Exam - Constitutional General appearance: no acute distress - Respiratory Respiratory exam: Present: clear to auscultation bilaterally - Cardiovascular Cardiovascular exam: Present: regular rate and rhythm - GI/Abdominal GI/Abdominal exam: Present: normal bowel sounds - Extremities Exam Extremities exam: Present: normal inspection
[2016-12-29] MEDS: METOPROLOL TARTRATE 50 MG TABLET PO SCH ×2 (09:36→21:03)
[2016-12-29] MEDS: hydroCHLOROthiazide 25 MG TABLET PO SCH (09:36)
[2016-12-29] MEDS: THIAMINE 100 MG TABLET PO SCH (09:36)
[2016-12-29] MEDS: PANTOPRAZOLE 40 MG TABLET PO SCH ×2 (09:36→21:02)
[2016-12-29] MEDS: chlordiazePOXIDE 25 MG CAPSULE PO SCH ×2 (09:36→21:02)
[2016-12-29] MEDS: FOLIC ACID 1 MG TABLET PO SCH (09:36)
[2016-12-29] MEDS: MULTIVITAMIN (CENTRUM) TABLET PO SCH (09:36)
[2016-12-29] MEDS: GABAPENTIN 100 MG CAPSULE PO SCH ×2 (09:36→21:02)
[2016-12-29] MEDS: LISINOPRIL 10 MG TABLET PO SCH (09:36)
--- NOTE | 2016-12-29 14:07 | Physician Query Form ---
CLICK EDIT DOCUMENT TO SELECT QUERY ANSWER --> OK --> SIGN Terri Gomez RN, CCDS Certified Clinical Extraction Machine Operator W) [phone] (f) [phone] [email or web address] PROVIDERS: Make your selection(s) from the choices in EACH section by typing an "x" and enter comments in the comment section. Please use your independent medical judgment in providing your response. This request does not imply that any particular answer is desired or expected. CLINICAL INDICATORS: (Providers should not edit this section) The medical record indicates that the patient was admitted with GI bleeding, EGD ----> "#1 severe ulcerative esophagitis-appearance consistent with reflux/ recent vomiting etiology", AND "Would not expect significant further bleeding risk with this". Based on the above, could you clarify the appropriate diagnosis, if significant , that supports the above abnormalities and additional evaluation, monitoring, and/or treatment rendered: ( ) GI Bleeding thought to be due to ( x) GI Bleeding thought to be due to Severe Ulcerative Esophagitis ( ) Other, please specify: ( ) Clinically unable to determine COMMENTS: Use of terms such as suspected, likely, or probable (associated with a specific diagnosis that is being evaluated, monitored, or treated as if it exists) are acceptable and can be restated in the discharge summary if not ruled out. MTDD
[2016-12-30] MEDS: MULTIVITAMIN (CENTRUM) TABLET PO SCH (09:05)
[2016-12-30] MEDS: PANTOPRAZOLE 40 MG TABLET PO SCH ×2 (09:05→21:18)
[2016-12-30] MEDS: hydroCHLOROthiazide 25 MG TABLET PO SCH (09:05)
[2016-12-30] MEDS: THIAMINE 100 MG TABLET PO SCH (09:05)
[2016-12-30] MEDS: FOLIC ACID 1 MG TABLET PO SCH (09:05)
[2016-12-30] MEDS: chlordiazePOXIDE 25 MG CAPSULE PO SCH ×2 (09:05→21:18)
[2016-12-30] MEDS: METOPROLOL TARTRATE 50 MG TABLET PO SCH ×2 (09:05→21:18)
[2016-12-30] MEDS: LISINOPRIL 10 MG TABLET PO SCH (09:15)
[2016-12-30] MEDS: GABAPENTIN 100 MG CAPSULE PO SCH ×2 (09:15→21:18)
--- NOTE | 2016-12-30 12:17 | Hospitalist Progress Note ---
Assessment and Plan (1) Intractable nausea and vomiting Status: Acute Assessment and plan: with epigastric pain: improved .She had EGD that showed small hiatal hernia and severe ulcerative esohagitis CT showed no evidence of obstruction. Blood cultures- no growth H/H-stable plan continue PPIs Continue pain meds and antiemetics follow H.pylori Current Visit: Yes (2) Coffee ground emesis Status: Acute Assessment and plan: s/p EGD which showed small hiatal hernia and severe ulcerative esophagitis continue with PPIs, -H/H is stable Current Visit: Yes (3) Hypertension Status: Chronic Assessment and plan: stable Current Visit: No Qualifiers: Hypertension type: essential hypertension Qualified Code(s): I10 - Essential (primary) hypertension (4) Hypokalemia Status: Acute Assessment and plan: repleted. Current Visit: Yes (5) Elevated troponin Status: Acute Assessment and plan: She also states a history of heart burn. Echo showed:Ejection fraction 60% with concentric LVH, moderate dilated left atrium, calcified mitral annulus, aortic sclerosis, normal RV function, mild TR PA pressure 40 with grade 1 diastolic dysfunction Cardiology has signed off. Current Visit: Yes (6) Sepsis Status: Acute Assessment and plan: sepsis ruled out - cultures- negative so far, will dc IV Zosyn Current Visit: Yes (7) Acute encephalopathy Status: Acute Assessment and plan: due to alcohol withdrawal-improved but atient is still weak, will need to go to a swing bed. Plan continue current care Continue PT consult-patient to ambulate more, dc planning Current Visit: Yes Hospitalist: Subjective Interval history: Patient seen, she looked a bit better but still very weak. manager law is working on a swing bed placement Exam - Constitutional Vitals: Period Temp Pulse Resp BP Sys/Joya Pulse Ox Last 24 Hr 97.4 F-98.9 F 60-79 18-20 119-158/54-88 97-98 General appearance: no acute distress, other (lethargic) - Head Head exam: Present: normal inspection - Respiratory Respiratory exam: Present: clear to auscultation bilaterally - Cardiovascular Cardiovascular exam: Present: regular rate and rhythm - GI/Abdominal GI/Abdominal exam: Present: normal bowel sounds - Extremities Exam Extremities exam: Present: normal inspection Results - Labs CBC & BMP: 12/24/16 02:27 12/24/16 02:27 Lab Results: I have reviewed the past 24 hour labs Quality Measures - VTE Contraindication to Pharmacological VTE Prophylaxis: Active Bleeding
[2016-12-31] MEDS: ONDANSETRON 4 MG/2 ML VIAL IV PRN (01:16)
[2016-12-31] MEDS ORDERED: ASPIRIN 325 MG TABLET PO ONE (10:46)
[2016-12-31] MEDS ORDERED: NITROGLYCERIN SL 0.4 MG TABLET SL PRN (10:46)
[2016-12-31] MEDS ORDERED: ALUM/MAG/SIMETH/LIDO VISC 1:1 30 ML BOTTLE PO ONE (11:00)
--- NOTE | 2016-12-31 11:03 | EKG Report ---
Stationary ECG Study [facility] Test Date: 12/31/2016 10:45:16 AM Pat Name: MOSHE EDWARDS Department: Room: 222 Gender: F Siphoner: : 1945 Requested by: Ligia Torres Order Number: [id number] Reading MD: KRISTIN SUGGS Intervals Dana Rate: 66 P: 53 OR: 122 QRS: -8 QRSD: 89 T: -3 QT: 439 QTc: 452 Interpretive Statements SINUS RHYTHM INFERIOR MYOCARDIAL INFARCTION, PROBABLY OLD WITH POSTERIOR EXTENSION Electronically Signed On 12-31-16 13:00:41 METAL [employer]ODUCTION by KRISTIN SUGGS [email or web address]
--- NOTE | 2016-12-31 11:17 | Case Mgmt Physician Query Form ---
TB Signs and Symptoms Screening ([place]) INSTRUCTIONS: To be completed annually on residents/staff with a significant Tuberculin Skin Test (TST) upon admission/[facility] or a prior significant TST. To be completed on all staff at [facility]. Please respond to each listed symptom with an (X) in either the "YES" or "NO" box. Do you currently have any of the following symptoms: YES NO ( ) ( ) A cough If yes, is it: ( ) Productive ( ) Non- productive ( ) ( ) Hemoptysis (spitting up blood) ( ) ( ) Chest pains ( ) ( ) Weight Loss ( ) ( ) Fever ( ) ( ) Night Sweats ( ) ( ) Weakness ( ) ( ) Loss of Appetite ( ) ( ) Difficulty Breathing If you answered YES" to any of the above questions, how long have symptoms been present? Comments: TB Signs and Symptoms Screening ([place]) INSTRUCTIONS: To be completed annually on residents/staff with a significant Tuberculin Skin Test (TST) upon admission/[facility] or a prior significant TST. To be completed on all staff at [facility]. Please respond to each listed symptom with an (X) in either the "YES" or "NO" box. Do you currently have any of the following symptoms: YES NO ( ) ( ) A cough If yes, is it: ( ) Productive ( ) Non- productive ( ) ( ) Hemoptysis (spitting up blood) ( ) ( ) Chest pains ( ) ( ) Weight Loss ( ) ( ) Fever ( ) ( ) Night Sweats ( ) ( ) Weakness ( ) ( ) Loss of Appetite ( ) ( ) Difficulty Breathing If you answered YES" to any of the above questions, how long have symptoms been present? Comments: TB Signs and Symptoms Screening ([place]) INSTRUCTIONS: To be completed annually on residents/staff with a significant Tuberculin Skin Test (TST) upon admission/[facility] or a prior significant TST. To be completed on all staff at [facility]. Please respond to each listed symptom with an (X) in either the "YES" or "NO" box. Do you currently have any of the following symptoms: YES NO ( ) ( ) A cough If yes, is it: ( ) Productive ( ) Non- productive ( ) ( ) Hemoptysis (spitting up blood) ( ) ( ) Chest pains ( ) ( ) Weight Loss ( ) ( ) Fever ( ) ( ) Night Sweats ( ) ( ) Weakness ( ) ( ) Loss of Appetite ( ) ( ) Difficulty Breathing If you answered YES" to any of the above questions, how long have symptoms been present? Comments: TB Signs and Symptoms Screening ([place]) INSTRUCTIONS: To be completed annually on residents/staff with a significant Tuberculin Skin Test (TST) upon admission/hire or a prior significant TST. To be completed on all staff at hire. Please respond to each listed symptom with an (X) in either the "YES" or "NO" box. Do you currently have any of the following symptoms: YES NO ( ) ( ) A cough If yes, is it: ( ) Productive ( ) Non- productive ( ) ( ) Hemoptysis (spitting up blood) ( ) ( ) Chest pains ( ) ( ) Weight Loss ( ) ( ) Fever ( ) ( ) Night Sweats ( ) ( ) Weakness ( ) ( ) Loss of Appetite ( ) ( ) Difficulty Breathing If you answered YES" to any of the above questions, how long have symptoms been present? Comments: CHAZ
[2016-12-31] MEDS: THIAMINE 100 MG TABLET PO SCH (11:33)
[2016-12-31] MEDS: GABAPENTIN 100 MG CAPSULE PO SCH (11:33)
[2016-12-31] MEDS: MULTIVITAMIN (CENTRUM) TABLET PO SCH (11:33)
[2016-12-31] MEDS: FOLIC ACID 1 MG TABLET PO SCH (11:33)
[2016-12-31] MEDS: PANTOPRAZOLE 40 MG TABLET PO SCH (11:34)
[2016-12-31] MEDS: hydroCHLOROthiazide 25 MG TABLET PO SCH (11:35)
[2016-12-31] MEDS: LISINOPRIL 10 MG TABLET PO SCH (11:36)
[2016-12-31] MEDS: METOPROLOL TARTRATE 50 MG TABLET PO SCH (11:37)
[2016-12-31] MEDS ORDERED: TUBERCULIN SKIN TEST 0.1 ML SYRINGE INTRADERM ONE (12:00)
--- NOTE | 2016-12-31 15:18 | Case Mgmt Physician Query Form ---
TB Signs and Symptoms Screening ([place]) INSTRUCTIONS: To be completed annually on residents/staff with a significant Tuberculin Skin Test (TST) upon admission/hire or a prior significant TST. To be completed on all staff at hire. Please respond to each listed symptom with an (X) in either the "YES" or "NO" box. Do you currently have any of the following symptoms: YES NO ( ) ( x) A cough If yes, is it: ( ) Productive ( ) Non- productive ( ) (x ) Hemoptysis (spitting up blood) ( ) (x ) Chest pains ( ) (x ) Weight Loss ( ) x( ) Fever ( ) (x ) Night Sweats ( ) (x ) Weakness ( ) ( x) Loss of Appetite ( ) (x ) Difficulty Breathing If you answered YES" to any of the above questions, how long have symptoms been present? Comments: CHAZ
[2016-12-31] MEDS: chlordiazePOXIDE 25 MG CAPSULE PO SCH (16:30)
[2016-12-31] MEDS: ALUMINUM/MAGNES/SIMETH MAX STR 30 ML UDCUP PO PRN (17:54)
[2016-12-31 21:38] VITALS: BP 105/57
== END 2016-12-31 19:10 | DRG 380 ==
LOC: EDUNIT# → EDBD → N.ED 11:47 → N.EDINP 17:07 → N.ICU 17:28 → N.2E 12-24 12:06
PROVIDERS: ADMIT Internal Medicine; ATTEND Internal Medicine

== ENCOUNTER 2018-07-20 08:10 | Inpatient (IN) ==
[2018-07-20] MEDS ORDERED: HYDROmorphone 2 MG/1 ML VIAL IV STA (08:23)
[2018-07-20] MEDS ORDERED: ONDANSETRON 4 MG/2 ML VIAL IV STA (08:23)
[2018-07-20 09:09] LABS: Basophils # 0.1 10*3/uL (0.0-0.2); Basophils % 0.4 % (0.0-0.8); Hematocrit 41.9 VOL% (35.7-47.0); Hemoglobin 14.6 GM/DL (12.0-16.0); Immature Granulocytes % 0.6 %; Immature Granulocytes Absolute 0.07 #; Lymphocytes # 0.9 10*3/uL (1.4-4.0); Lymphocytes % 7.1 % (21.3-54.2); Mean Corpuscular HGB Conc 34.8 GM/DL (32-36); Mean Corpuscular Hemoglobin 34 PG (27-34); Mean Corpuscular Volume 98.1 FL (87-102); Mean Platelet Volume 11.3 FL (9.6-12.0); Monocytes % 7.6 % (1.7-12.7); Neutrophils # 10.7 10*3/uL (1.4-7.4); Neutrophils % 84.3 % (38.7-73.9); Platelet Count 183 T/CUMM (130-400); Red Blood Count 4.27 MC/CUMM (3.8-5.5); Red Cell Distribution Width 12.2 % (9.3-17.3); White Blood Count 12.6 T/CUMM (4-12)
[2018-07-20 09:20] LABS: Apearance,Urine CLEAR (Clear); Bilirubin,Urine Negative (Negative); Blood, Urine Negative (Negative); Glucose,Urine (UA) Negative (Negative); Ketones,Urine 5 mg/dL (Negative); Mucus,Urine Occasional /LPF (Occasional); Nitrite,Urine Negative (Negative); Protein,Urine Negative; RBC,Urine <1 /HPF (0-4); Urine Color Straw (Yellow); Urine Specific Gravity 1.003 (1.001-1.035); Urine Urobilinogen < 2.0 EU/DL (0.2-1.0)
[2018-07-20 09:33] LABS: Albumin 3.3 G/DL (3.4-5.0); Bilirubin,Total 0.4 MG/DL (0.2-1.0); Calcium 8.5 MG/DL (8.5-10.1); Osmolality,Calculated 264.2 MOS/KG (273-304); Potassium 2.9 MMOL/L (3.5-5.1); Total Protein 8.4 G/DL (6.4-8.3)
[2018-07-20] MEDS ORDERED: MAGNESIUM HYDROXIDE SUSP 30 ML UDCUP PO PRN (10:31)
[2018-07-20] MEDS: SODIUM CHLORIDE 0.9% 1,000 ML IV SCH (11:24)
[2018-07-20] MEDS: METOPROLOL TARTRATE 50 MG TABLET PO SCH (13:54)
[2018-07-20] MEDS ORDERED: hydrALAZINE 20 MG/1 ML VIAL IV PRN (15:00)
[2018-07-20] MEDS: HYDROmorphone 2 MG/1 ML VIAL IV PRN (15:44)
[2018-07-20] MEDS ORDERED: POTASSIUM CHLORIDE 20 MEQ TABLET PO ONE (16:59)
[2018-07-20] MEDS: SPIRONOLACTONE 25 MG TABLET PO SCH (17:36)
[2018-07-20] MEDS: POTASSIUM CHLORIDE 20 MEQ TABLET PO PRN ×3 (19:44→23:42)
[2018-07-21] MEDS: diphenhydrAMINE CAP 25 MG CAPSULE PO PRN (00:21)
[2018-07-21] MEDS: HYDROmorphone 2 MG/1 ML VIAL IV PRN ×3 (00:21→20:57)
[2018-07-21] MEDS: SODIUM CHLORIDE 0.9% 1,000 ML IV SCH (02:50)
[2018-07-21 05:59] LABS: Basophils # 0.1 10*3/uL (0.0-0.2); Basophils % 0.4 % (0.0-0.8); Eosinophils % 0.3 % (0.00-10.9); Hematocrit 39.7 VOL% (35.7-47.0); Hemoglobin 13.8 GM/DL (12.0-16.0); Immature Granulocytes % 0.4 %; Immature Granulocytes Absolute 0.06 #; Lymphocytes % 6.7 % (21.3-54.2); Mean Corpuscular HGB Conc 34.8 GM/DL (32-36); Mean Corpuscular Hemoglobin 34 PG (27-34); Mean Platelet Volume 12.4 FL (9.6-12.0); Monocytes # 1.1 10*3/uL (0.11-0.8); Monocytes % 7.1 % (1.7-12.7); Neutrophils # 12.9 10*3/uL (1.4-7.4); Neutrophils % 85.1 % (38.7-73.9); Platelet Count 169 T/CUMM (130-400); Red Blood Count 4.05 MC/CUMM (3.8-5.5); Red Cell Distribution Width 12.9 % (9.3-17.3); White Blood Count 15.2 T/CUMM (4-12)
[2018-07-21 06:30] LABS: Albumin 2.7 G/DL (3.4-5.0); Bilirubin,Total 1.4 MG/DL (0.2-1.0); Calcium 8.5 MG/DL (8.5-10.1); Osmolality,Calculated 264.2 MOS/KG (273-304); Total Protein 7.3 G/DL (6.4-8.3)
[2018-07-21] MEDS ORDERED: ceFAZolin 1,000 MG in SYRINGE 1 EACH IV ONE (08:00)
[2018-07-21] MEDS: METOPROLOL TARTRATE 50 MG TABLET PO SCH (09:30)
[2018-07-21] MEDS: PANTOPRAZOLE 40 MG TABLET PO SCH (09:31)
[2018-07-21] MEDS ORDERED: TRANEXAMIC ACID 1,000 MG/10 ML VIAL ONE (11:38)
[2018-07-21] MEDS ORDERED: BISACODYL 10 MG SUPP RECTAL PRN (12:15)
[2018-07-21] MEDS ORDERED: TEMAZEPAM 7.5 MG CAPSULE PO PRN (12:15)
[2018-07-21] MEDS ORDERED: ONDANSETRON 4 MG/2 ML VIAL IV PRN (12:15)
[2018-07-21] MEDS ORDERED: LACTULOSE 20 GM/30 ML UDCUP PO PRN (12:15)
[2018-07-21] MEDS ORDERED: PROMETHAZINE 25 MG/1 ML VIAL IM PRN (12:15)
[2018-07-21] MEDS ORDERED: PROPOFOL 200 MG/20 ML VIAL IV ONE (12:41)
[2018-07-21] MEDS ORDERED: MIDAZOLAM 2 MG/2 ML VIAL ONE (12:41)
[2018-07-21] MEDS ORDERED: SEVOFLURANE 1 UNIT/15 MINUTE INH ONE (12:41)
[2018-07-21] MEDS ORDERED: ePHEDrine 50 MG/ML AMP ONE (12:42)
[2018-07-21] MEDS ORDERED: PHENYLEPHRINE 1 MG/10 ML SYRINGE IV ONE (12:42)
[2018-07-21] MEDS ORDERED: fentaNYL 100 MCG/2 ML VIAL ONE (12:42)
[2018-07-21] MEDS ORDERED: LACTATED RINGERS 1,000 ML IV ONE (12:42)
[2018-07-21] MEDS: SPIRONOLACTONE 25 MG TABLET PO SCH (15:57)
[2018-07-21] MEDS: FOLIC ACID 1 MG TABLET PO SCH (15:57)
[2018-07-21] MEDS: MULTIVITAMIN (CENTRUM) TABLET PO SCH (15:57)
[2018-07-21] MEDS: THIAMINE 100 MG TABLET PO SCH (15:58)
[2018-07-21] MEDS: ceFAZolin 1,000 MG in SYRINGE 1 EACH IV SCH (20:51)
[2018-07-21] MEDS: DOCUSATE SODIUM 100 MG CAPSULE PO SCH (20:51)
[2018-07-22] MEDS: HYDROmorphone 2 MG/1 ML VIAL IV PRN (00:37)
[2018-07-22] MEDS: ceFAZolin 1,000 MG in SYRINGE 1 EACH IV SCH (04:43)
[2018-07-22] MEDS: LORazepam 2 MG/1 ML VIAL IV PRN (04:48)
[2018-07-22] MEDS: FONDAPARINUX 2.5 MG/0.5 ML SYRINGE SUBCUT SCH (06:12)
[2018-07-22 06:39] LABS: Basophils # 0.1 10*3/uL (0.0-0.2); Basophils % 0.5 % (0.0-0.8); Eosinophils # 0.3 10*3/uL (0.0-0.87); Eosinophils % 1.9 % (0.00-10.9); Hematocrit 35.5 VOL% (35.7-47.0); Hemoglobin 12.3 GM/DL (12.0-16.0); Immature Granulocytes % 0.7 %; Lymphocytes # 0.8 10*3/uL (1.4-4.0); Mean Corpuscular HGB Conc 34.6 GM/DL (32-36); Mean Corpuscular Hemoglobin 34 PG (27-34); Mean Corpuscular Volume 99.2 FL (87-102); Mean Platelet Volume 12.7 FL (9.6-12.0); Monocytes # 1.1 10*3/uL (0.11-0.8); Monocytes % 7.8 % (1.7-12.7); Neutrophils # 11.4 10*3/uL (1.4-7.4); Neutrophils % 83.1 % (38.7-73.9); Platelet Count 124 T/CUMM (130-400); Red Blood Count 3.58 MC/CUMM (3.8-5.5); Red Cell Distribution Width 12.6 % (9.3-17.3); White Blood Count 13.8 T/CUMM (4-12)
[2018-07-22 07:10] LABS: Osmolality,Calculated 256.8 MOS/KG (273-304)
[2018-07-22] MEDS ORDERED: POTASSIUM CHLORIDE 20 MEQ TABLET PO SCH (09:00)
[2018-07-22] MEDS: MULTIVITAMIN (CENTRUM) TABLET PO SCH (09:40)
[2018-07-22] MEDS: FOLIC ACID 1 MG TABLET PO SCH (09:40)
[2018-07-22] MEDS: PANTOPRAZOLE 40 MG TABLET PO SCH (09:40)
[2018-07-22] MEDS: METOPROLOL TARTRATE 50 MG TABLET PO SCH ×2 (09:41)
[2018-07-22] MEDS: DOCUSATE SODIUM 100 MG CAPSULE PO SCH ×2 (09:41→21:34)
[2018-07-22] MEDS: THIAMINE 100 MG TABLET PO SCH (09:41)
[2018-07-22] MEDS: SPIRONOLACTONE 25 MG TABLET PO SCH ×2 (09:41→13:44)
[2018-07-22] MEDS: SODIUM CHLORIDE 0.9% 1,000 ML IV SCH (10:43)
[2018-07-23 05:12] LABS: Basophils # 0.1 10*3/uL (0.0-0.2); Basophils % 0.6 % (0.0-0.8); Eosinophils # 0.3 10*3/uL (0.0-0.87); Eosinophils % 2.3 % (0.00-10.9); Hematocrit 39.2 VOL% (35.7-47.0); Immature Granulocytes % 0.5 %; Immature Granulocytes Absolute 0.07 #; Lymphocytes # 1.8 10*3/uL (1.4-4.0); Lymphocytes % 13.4 % (21.3-54.2); Mean Corpuscular HGB Conc 33.2 GM/DL (32-36); Mean Corpuscular Hemoglobin 34 PG (27-34); Mean Corpuscular Volume 102.3 FL (87-102); Mean Platelet Volume 11.7 FL (9.6-12.0); Monocytes # 1.2 10*3/uL (0.11-0.8); Monocytes % 8.9 % (1.7-12.7); Neutrophils % 74.3 % (38.7-73.9); Platelet Count 145 T/CUMM (130-400); Red Blood Count 3.83 MC/CUMM (3.8-5.5); Red Cell Distribution Width 12.5 % (9.3-17.3); White Blood Count 13.4 T/CUMM (4-12)
[2018-07-23 05:33] LABS: Calcium 8.2 MG/DL (8.5-10.1); Osmolality,Calculated 262.4 MOS/KG (273-304); Potassium 3.3 MMOL/L (3.5-5.1)
[2018-07-23] MEDS: FONDAPARINUX 2.5 MG/0.5 ML SYRINGE SUBCUT SCH (05:52)
[2018-07-23] MEDS: LORazepam 2 MG/1 ML VIAL IV PRN ×2 (09:05→18:10)
[2018-07-23] MEDS: SPIRONOLACTONE 25 MG TABLET PO SCH (09:08)
[2018-07-23] MEDS: FOLIC ACID 1 MG TABLET PO SCH (09:08)
[2018-07-23] MEDS: THIAMINE 100 MG TABLET PO SCH (09:08)
[2018-07-23] MEDS: MULTIVITAMIN (CENTRUM) TABLET PO SCH (09:08)
[2018-07-23] MEDS: PANTOPRAZOLE 40 MG TABLET PO SCH (09:08)
[2018-07-23] MEDS: DOCUSATE SODIUM 100 MG CAPSULE PO SCH ×2 (09:09→21:11)
[2018-07-23] MEDS: METOPROLOL TARTRATE 50 MG TABLET PO SCH ×2 (09:09→11:43)
[2018-07-23] MEDS: diphenhydrAMINE CAP 25 MG CAPSULE PO PRN (14:44)
[2018-07-23] MEDS: HYDROmorphone 2 MG/1 ML VIAL IV PRN (21:14)
[2018-07-24] MEDS: FONDAPARINUX 2.5 MG/0.5 ML SYRINGE SUBCUT SCH (05:28)
[2018-07-24 06:22] LABS: Basophils # 0.1 10*3/uL (0.0-0.2); Basophils % 0.4 % (0.0-0.8); Eosinophils # 0.3 10*3/uL (0.0-0.87); Eosinophils % 2.6 % (0.00-10.9); Hematocrit 37.7 VOL% (35.7-47.0); Hemoglobin 12.8 GM/DL (12.0-16.0); Immature Granulocytes % 0.6 %; Immature Granulocytes Absolute 0.07 #; Lymphocytes # 1.3 10*3/uL (1.4-4.0); Lymphocytes % 10.4 % (21.3-54.2); Mean Corpuscular Hemoglobin 34 PG (27-34); Mean Corpuscular Volume 100.8 FL (87-102); Mean Platelet Volume 12.1 FL (9.6-12.0); Monocytes % 8.2 % (1.7-12.7); Neutrophils # 9.4 10*3/uL (1.4-7.4); Neutrophils % 77.8 % (38.7-73.9); Platelet Count 169 T/CUMM (130-400); Red Blood Count 3.74 MC/CUMM (3.8-5.5); Red Cell Distribution Width 12.4 % (9.3-17.3); White Blood Count 12.1 T/CUMM (4-12)
[2018-07-24 06:39] LABS: Calcium 8.5 MG/DL (8.5-10.1); Osmolality,Calculated 261.4 MOS/KG (273-304); Potassium 2.9 MMOL/L (3.5-5.1)
[2018-07-24] MEDS ORDERED: SODIUM CHLOR 0.9% KCL 20 MEQ 20 MEQ/1,000 ML BAG IV SCH (10:00)
[2018-07-24] MEDS: MULTIVITAMIN (CENTRUM) TABLET PO SCH (11:07)
[2018-07-24] MEDS: METOPROLOL TARTRATE 50 MG TABLET PO SCH ×2 (11:07→11:09)
[2018-07-24] MEDS: FOLIC ACID 1 MG TABLET PO SCH (11:07)
[2018-07-24] MEDS: POTASSIUM CHLORIDE 20 MEQ TABLET PO PRN ×4 (11:07→19:53)
[2018-07-24] MEDS: DOCUSATE SODIUM 100 MG CAPSULE PO SCH ×2 (11:07→21:04)
[2018-07-24] MEDS: diphenhydrAMINE CAP 25 MG CAPSULE PO PRN ×2 (11:08→21:04)
[2018-07-24] MEDS: THIAMINE 100 MG TABLET PO SCH (11:09)
[2018-07-24] MEDS: PANTOPRAZOLE 40 MG TABLET PO SCH (11:09)
[2018-07-24] MEDS: SPIRONOLACTONE 25 MG TABLET PO SCH (11:09)
[2018-07-24] MEDS: amLODIPine 5 MG TABLET PO SCH (11:10)
[2018-07-24] MEDS: LORazepam 2 MG/1 ML VIAL IV PRN (12:00)
[2018-07-25 01:56] LABS: Basophils # 0.1 10*3/uL (0.0-0.2); Basophils % 0.7 % (0.0-0.8); Eosinophils # 0.5 10*3/uL (0.0-0.87); Eosinophils % 5.4 % (0.00-10.9); Hematocrit 34.3 VOL% (35.7-47.0); Hemoglobin 11.9 GM/DL (12.0-16.0); Immature Granulocytes % 0.8 %; Immature Granulocytes Absolute 0.08 #; Lymphocytes # 2.2 10*3/uL (1.4-4.0); Lymphocytes % 21.5 % (21.3-54.2); Mean Corpuscular HGB Conc 34.7 GM/DL (32-36); Mean Corpuscular Hemoglobin 34 PG (27-34); Mean Corpuscular Volume 99.1 FL (87-102); Mean Platelet Volume 11.3 FL (9.6-12.0); Monocytes # 1.2 10*3/uL (0.11-0.8); Neutrophils % 59.6 % (38.7-73.9); Platelet Count 177 T/CUMM (130-400); Red Blood Count 3.46 MC/CUMM (3.8-5.5); Red Cell Distribution Width 12.3 % (9.3-17.3); White Blood Count 10.1 T/CUMM (4-12)
[2018-07-25 02:17] LABS: Calcium 8.1 MG/DL (8.5-10.1); Osmolality,Calculated 265.2 MOS/KG (273-304); Potassium 4.2 MMOL/L (3.5-5.1)
[2018-07-25] MEDS: FONDAPARINUX 2.5 MG/0.5 ML SYRINGE SUBCUT SCH (05:06)
[2018-07-25] MEDS ORDERED: SPIRONOLACTONE 50 MG TABLET PO SCH (09:00)
[2018-07-25] MEDS: MULTIVITAMIN (CENTRUM) TABLET PO SCH (10:04)
[2018-07-25] MEDS: amLODIPine 5 MG TABLET PO SCH (10:04)
[2018-07-25] MEDS: DOCUSATE SODIUM 100 MG CAPSULE PO SCH (10:04)
[2018-07-25] MEDS: THIAMINE 100 MG TABLET PO SCH (10:04)
[2018-07-25] MEDS: METOPROLOL TARTRATE 50 MG TABLET PO SCH (10:05)
[2018-07-25] MEDS: FOLIC ACID 1 MG TABLET PO SCH (10:05)
[2018-07-25] MEDS: PANTOPRAZOLE 40 MG TABLET PO SCH (10:05)
[2018-07-25 17:42] VITALS: BP 140/71
== END 2018-07-25 18:00 | DRG 470 ==
LOC: EDBD → EDUNIT# → N.ED 08:10 → N.EDINP 08:55 → N.3E 09:29
PROVIDERS: ADMIT Orthopaedic Surgery; ATTEND Orthopaedic Surgery

== ENCOUNTER 2021-07-30 15:04 | Inpatient (IN) ==
[2021-07-30] MEDS ORDERED: SODIUM CHLORIDE 0.9% 1,000 ML IV STA (15:32)
[2021-07-30 15:40] LABS: Basophils # 0.2 10*3/uL (0.0-0.2); Basophils % 1.1 % (0.0-0.8); Hemoglobin 14.1 GM/DL (12.0-16.0); Immature Granulocytes % 0.8 %; Immature Granulocytes Absolute 0.11 #; Lymphocytes # 1.1 10*3/uL (1.4-4.0); Lymphocytes % 7.8 % (21.3-54.2); Mean Corpuscular HGB Conc 35.3 GM/DL (32-36); Mean Corpuscular Volume 94.8 FL (87-102); Mean Platelet Volume 11.4 FL (9.6-12.0); Monocytes % 5.1 % (1.7-12.7); Neutrophils % 85.2 % (38.7-73.9); Platelet Count 178 T/CUMM (130-400); Red Blood Count 4.22 MC/CUMM (3.8-5.5); Red Cell Distribution Width 11.2 % (9.3-17.3); White Blood Count 13.9 T/CUMM (4-12)
[2021-07-30 15:56] LABS: Anisocytosis 1+; Platelet Estimate Normal
[2021-07-30 15:57] LABS: Hypochromasia Slight; Macrocytosis Slight
[2021-07-30 15:58] LABS: Bilirubin,Total 0.8 MG/DL (0.20-1.00); Calcium 7.7 MG/DL (8.5-10.1); Osmolality,Calculated 247.6 MOS/KG (273-304); Potassium 2.8 MMOL/L (3.5-5.1); Total Protein 7.2 G/DL (6.4-8.2)
[2021-07-30 16:11] LABS: Bilirubin,Urine Negative (Negative); Blood, Urine Small mg/dL (Negative); Glucose,Urine (UA) Negative (Negative); Hyaline Casts,Urine 1 /LPF (0-3); Ketones,Urine Negative (Negative); Nitrite,Urine Negative (Negative); Protein,Urine Negative; RBC,Urine <1 /HPF (0-4); Urine Appearance CLEAR (Clear); Urine Color Yellow (Yellow); Urine Specific Gravity 1.003 (1.001-1.035); Urine Urobilinogen < 2.0 EU/DL (0.2-1.0)
[2021-07-30] MEDS: POTASSIUM CHLORIDE 20 MEQ TABLET PO PRN (16:31)
[2021-07-30] MEDS: SODIUM CHLORIDE 0.9% 1,800 ML IV ONE ×2 (17:08→17:14)
[2021-07-30] MEDS: LACTATED RINGERS 1,800 ML IV ONE ×2 (17:08→17:13)
[2021-07-30] MEDS: PIPERACILLIN/TAZOBACTAM 3,375 MG in SODIUM CHLORIDE 0.9% 100 ML IV SCH (17:10)
[2021-07-30] MEDS ORDERED: MORPHINE 2 MG/1 ML SYRINGE ONE (17:36)
[2021-07-30] MEDS ORDERED: ONDANSETRON 4 MG/2 ML VIAL ONE (17:36)
[2021-07-30] MEDS ORDERED: ONDANSETRON 4 MG/2 ML VIAL IV STA (17:36)
[2021-07-30] MEDS ORDERED: MORPHINE 2 MG/1 ML SYRINGE IV STA (17:36)
[2021-07-30] MEDS ORDERED: GLUCAGON 1 MG VIAL IM PRN (18:16)
[2021-07-30] MEDS ORDERED: DEXTROSE 50% 25 GM/50 ML VIAL IV PRN (18:16)
[2021-07-30] MEDS ORDERED: ACETAMINOPHEN 325 MG TABLET PO PRN (18:16)
[2021-07-30] MEDS ORDERED: ONDANSETRON 4 MG/2 ML VIAL IV PRN (18:16)
[2021-07-30] MEDS ORDERED: VANCOMYCIN INJ 1,000 MG in SODIUM CHLORIDE 0.9% 250 ML IV SCH (18:30)
[2021-07-30] MEDS: VANCOMYCIN INJ 1,000 MG in SODIUM CHLORIDE 0.9% 250 ML IV SCH (18:42)
[2021-07-30] MEDS: MORPHINE 2 MG/1 ML SYRINGE IV PRN (21:21)
[2021-07-30] MEDS: CIPROFLOXACIN INJ 400 MG/200 ML PREMIX IV SCH (22:34)
[2021-07-30] MEDS: ENOXAPARIN 40 MG/0.4 ML SYRINGE SUBCUT SCH (22:34)
[2021-07-30] MEDS: LACTATED RINGERS 1,000 ML IV SCH (22:35)
[2021-07-31] MEDS: PIPERACILLIN/TAZOBACTAM 3,375 MG in SODIUM CHLORIDE 0.9% 100 ML IV SCH ×3 (00:30→18:21)
[2021-07-31 01:07] LABS: Basophils # 0.1 10*3/uL (0.0-0.2); Basophils % 0.9 % (0.0-0.8); Eosinophils % 0.1 % (0.00-10.9); Hematocrit 37.1 VOL% (35.7-47.0); Hemoglobin 13.2 GM/DL (12.0-16.0); Immature Granulocytes % 0.5 %; Immature Granulocytes Absolute 0.05 #; Lymphocytes # 1.2 10*3/uL (1.4-4.0); Lymphocytes % 11.8 % (21.3-54.2); Mean Corpuscular HGB Conc 35.6 GM/DL (32-36); Mean Corpuscular Volume 95.9 FL (87-102); Mean Platelet Volume 11.5 FL (9.6-12.0); Monocytes % 10.8 % (1.7-12.7); Neutrophils % 75.9 % (38.7-73.9); Platelet Count 143 T/CUMM (130-400); Red Blood Count 3.87 MC/CUMM (3.8-5.5); Red Cell Distribution Width 11.3 % (9.3-17.3); White Blood Count 10.5 T/CUMM (4-12)
[2021-07-31 01:24] LABS: Calcium 7.2 MG/DL (8.5-10.1); Osmolality,Calculated 255.9 MOS/KG (273-304)
[2021-07-31] MEDS: POTASSIUM CHLORIDE 20 MEQ TABLET PO PRN ×4 (01:38→08:31)
[2021-07-31] MEDS: MORPHINE 2 MG/1 ML SYRINGE IV PRN ×3 (02:04→17:35)
[2021-07-31] MEDS: CIPROFLOXACIN INJ 400 MG/200 ML PREMIX IV SCH (07:06)
[2021-07-31] MEDS: carvediloL 6.25 MG TABLET PO SCH ×2 (08:32→17:34)
[2021-07-31] MEDS: lisinopriL 10 MG TABLET PO SCH (08:32)
[2021-07-31] MEDS: PANTOPRAZOLE 40 MG TABLET PO SCH (08:32)
[2021-07-31] MEDS ORDERED: LORazepam 1 MG TABLET PO ONE (08:53)
[2021-07-31] MEDS ORDERED: POTASSIUM CHLORIDE 20 MEQ TABLET PO ONE ×2 (12:32→20:00)
[2021-07-31] MEDS: SODIUM CHLORIDE 0.9% 1,000 ML IV SCH ×2 (14:18→21:37)
[2021-07-31] MEDS: VANCOMYCIN INJ 1,000 MG in SODIUM CHLORIDE 0.9% 250 ML IV SCH (14:18)
[2021-07-31] MEDS: LACTATED RINGERS 1,000 ML IV SCH (14:41)
[2021-07-31] MEDS: POTASSIUM CHLORIDE RIDER 10 MEQ/100 ML PREMIX IV SCH ×3 (15:43→19:25)
[2021-07-31] MEDS: ENOXAPARIN 40 MG/0.4 ML SYRINGE SUBCUT SCH (18:29)
[2021-07-31] MEDS ORDERED: POTASSIUM CHLORIDE RIDER 10 MEQ/100 ML PREMIX IV SCH (22:00)
[2021-08-01] MEDS: PIPERACILLIN/TAZOBACTAM 3,375 MG in SODIUM CHLORIDE 0.9% 100 ML IV SCH
[2021-08-01 04:09] LABS: Basophils # 0.1 10*3/uL (0.0-0.2); Basophils % 2.1 % (0.0-0.8); Eosinophils # 0.3 10*3/uL (0.0-0.87); Eosinophils % 3.8 % (0.00-10.9); Hematocrit 35.7 VOL% (35.7-47.0); Hemoglobin 12.4 GM/DL (12.0-16.0); Immature Granulocytes % 0.6 %; Immature Granulocytes Absolute 0.04 #; Lymphocytes # 1.6 10*3/uL (1.4-4.0); Lymphocytes % 23.7 % (21.3-54.2); Mean Corpuscular HGB Conc 34.7 GM/DL (32-36); Mean Corpuscular Volume 98.1 FL (87-102); Mean Platelet Volume 11.7 FL (9.6-12.0); Monocytes % 11.7 % (1.7-12.7); Neutrophils % 58.1 % (38.7-73.9); Platelet Count 148 T/CUMM (130-400); Red Blood Count 3.64 MC/CUMM (3.8-5.5); Red Cell Distribution Width 11.6 % (9.3-17.3); White Blood Count 6.8 T/CUMM (4-12)
[2021-08-01 04:39] LABS: Albumin 2.4 G/DL (3.4-5.0); Bilirubin,Direct 0.18 MG/DL (0.0-0.20); Bilirubin,Indirect 0.4 MG/DL (0.0-1.0); Bilirubin,Total 0.6 MG/DL (0.20-1.00); Calcium 7.3 MG/DL (8.5-10.1); Osmolality,Calculated 259.5 MOS/KG (273-304); Potassium 3.7 MMOL/L (3.5-5.1); Thyroid Stimulating Hormone 2.2 uIU/ml (0.358-3.74)
[2021-08-01] MEDS: VANCOMYCIN INJ 1,000 MG in SODIUM CHLORIDE 0.9% 250 ML IV SCH (05:49)
[2021-08-01] MEDS: lisinopriL 10 MG TABLET PO SCH (08:26)
[2021-08-01] MEDS: carvediloL 6.25 MG TABLET PO SCH ×2 (08:27→16:04)
[2021-08-01] MEDS: PANTOPRAZOLE 40 MG TABLET PO SCH (08:27)
[2021-08-01] MEDS ORDERED: MAGNESIUM SULF RIDER 4 GM/100 ML PREMIX IV ONE (09:00)
[2021-08-01] MEDS ORDERED: POTASSIUM CHLORIDE 20 MEQ TABLET PO ONE (15:00)
[2021-08-01] MEDS: SODIUM CHLORIDE 0.9% 1,000 ML IV SCH ×3 (15:11→17:25)
[2021-08-01] MEDS: MORPHINE 2 MG/1 ML SYRINGE IV PRN ×2 (15:12→20:00)
[2021-08-01] MEDS: POTASSIUM CHLORIDE RIDER 10 MEQ/100 ML PREMIX IV SCH (15:44)
[2021-08-01] MEDS: ENOXAPARIN 40 MG/0.4 ML SYRINGE SUBCUT SCH (17:36)
[2021-08-02] MEDS: MORPHINE 2 MG/1 ML SYRINGE IV PRN ×2 (01:11→08:54)
[2021-08-02] MEDS: SODIUM CHLORIDE 0.9% 1,000 ML IV SCH ×3 (01:45→10:10)
[2021-08-02 06:14] LABS: Basophils # 0.1 10*3/uL (0.0-0.2); Basophils % 1.8 % (0.0-0.8); Eosinophils # 0.5 10*3/uL (0.0-0.87); Eosinophils % 7.8 % (0.00-10.9); Hematocrit 35.4 VOL% (35.7-47.0); Hemoglobin 12.5 GM/DL (12.0-16.0); Immature Granulocytes % 0.3 %; Immature Granulocytes Absolute 0.02 #; Lymphocytes # 1.6 10*3/uL (1.4-4.0); Lymphocytes % 24.5 % (21.3-54.2); Mean Corpuscular HGB Conc 35.3 GM/DL (32-36); Mean Corpuscular Volume 97.5 FL (87-102); Mean Platelet Volume 12.5 FL (9.6-12.0); Monocytes % 8.8 % (1.7-12.7); Neutrophils % 56.8 % (38.7-73.9); Platelet Count 143 T/CUMM (130-400); Red Blood Count 3.63 MC/CUMM (3.8-5.5); Red Cell Distribution Width 11.6 % (9.3-17.3); White Blood Count 6.6 T/CUMM (4-12)
[2021-08-02 06:33] LABS: Albumin 2.4 G/DL (3.4-5.0); Bilirubin,Direct 0.14 MG/DL (0.0-0.20); Bilirubin,Indirect 0.7 MG/DL (0.0-1.0); Bilirubin,Total 0.8 MG/DL (0.20-1.00); Calcium 7.6 MG/DL (8.5-10.1); Osmolality,Calculated 257.7 MOS/KG (273-304); Potassium 3.7 MMOL/L (3.5-5.1); Total Protein 6.3 G/DL (6.4-8.2)
[2021-08-02] MEDS: lisinopriL 10 MG TABLET PO SCH (08:51)
[2021-08-02] MEDS: carvediloL 6.25 MG TABLET PO SCH (08:51)
[2021-08-02] MEDS: PANTOPRAZOLE 40 MG TABLET PO SCH (08:51)
[2021-08-02 12:32] VITALS: BP 151/74
== END 2021-08-02 15:00 | disposition home health service (06) | DRG 552 ==
LOC: EDBD → EDUNIT# → N.ED 15:04 → N.EDINP 18:16 → N.3E 20:39
PROVIDERS: ADMIT Internal Medicine; ATTEND Internal Medicine